=== PATIENT | female | born 1965 | race Caucasian/White ===

== ENCOUNTER 2023-07-28 10:53 | Outpatient (OUT) | payer MEDICARE, SELFPAY ==
--- NOTE | 2023-07-28 10:55 | MM_ITS ---
Patient Name: PAULETTE KIM MR#: [id number] : 1965 Exam Date: 07/28/2023 Ordering Doctor: Patricia Schultz RADIOLOGY REPORT PROCEDURE: MM TOMOSYNTHESIS SCREENING BI COMPARISON: MG MAMM SCREEN JOON W CAD, 01/25/2019. MG MAMM SCREEN JOON W CAD, 03/22/2020. INDICATIONS: screening Calculator Name NCI Breast Cancer Risk Assessment Tool 5 Year Breast Cancer Risk 2.70% Lifetime Breast Cancer Risk 13.60% Personal Breast Cancer No Personal Ovarian Cancer No Treatments Excision. Family Cancers Sister with breast cancer at age 57; Cousin-maternal with breast cancer at age 60. LOCATION: [facility] BREAST COMPOSITION: Heterogeneously dense,which may obscure small masses. FINDINGS: DIAGNOSTIC CATEGORY 1--NEGATIVE. NO CHANGE FROM COMPARISON ASSESSMENT. Scattered benign-appearing calcifications are present. Scattered benign-appearing lymph nodes are present. RIGHT BREAST: No significant suspicious finding. LEFT BREAST: No significant suspicious finding. RECOMMENDATIONS: ROUTINE MAMMOGRAM AND CLINICAL EVALUATION IN 12 MONTHS. PLEASE NOTE: A NORMAL MAMMOGRAM DOES NOT EXCLUDE THE POSSIBILITY OF BREAST CANCER. A CLINICALLY SUSPICIOUS PALPABLE LUMP SHOULD BE BIOPSIED. Dictated by: Austin Arce MD on 07/28/2023 at 11:42 Approved by: Austin Arce MD on 07/28/2023 at 11:43
== END 2023-07-28 10:54 | disposition home or self-care (01) ==
LOC: MAMMO 10:53
DX: Z12.31 Encounter for screening mammogram for malignant neoplasm of breast (principal); Z80.3 Family history of malignant neoplasm of breast
CPT/HCPCS: 77063; 77067

== ENCOUNTER 2024-08-02 16:57 | Outpatient (OUT) | payer MEDICARE, SELFPAY ==
--- NOTE | 2024-08-02 17:00 | MM_ITS ---
Patient Name: PAULETTE KIM MR#: [id number] : 1965 Exam Date: 08/02/2024 Ordering Doctor: Non-Staff Physician RADIOLOGY REPORT PROCEDURE: MM TOMOSYNTHESIS SCREENING BI COMPARISON: MM TOMOSYNTHESIS SCREENING BI, 07/28/2023. MG MAMM SCREEN JOON W CAD, 03/22/2020. MG MAMM SCREEN JOON W CAD, 01/25/2019. MG MAMM RT UNI W CAD DIG, 12/30/2012. INDICATIONS: SCREENING MAMMOGRAM Calculator Name NCI Breast Cancer Risk Assessment Tool 5 Year Breast Cancer Risk 2.80% Lifetime Breast Cancer Risk 13.20% Personal Breast Cancer No Personal Ovarian Cancer No Treatments Excision. Family Cancers Sister with breast cancer at age 57; Cousin-maternal with breast cancer at age 60. LOCATION: [facility] BREAST COMPOSITION: The breasts are heterogeneously dense,which may obscure small masses. FINDINGS: DIAGNOSTIC CATEGORY 1--NEGATIVE. LEFT BREAST: No significant suspicious finding. RIGHT BREAST: No significant suspicious finding. RECOMMENDATIONS: ROUTINE MAMMOGRAM AND CLINICAL EVALUATION IN 12 MONTHS. PLEASE NOTE: A NORMAL MAMMOGRAM DOES NOT EXCLUDE THE POSSIBILITY OF BREAST CANCER. A CLINICALLY SUSPICIOUS PALPABLE LUMP SHOULD BE BIOPSIED. Dictated by: Star Patel DO on 08/04/2024 at 15:28 Approved by: Star Patel DO on 08/04/2024 at 15:31
--- OUTSIDE RECORDS SUMMARY | 2024-08-02 17:09 | XMS_ITS | CCD ---
Author Organization [facility] Care Team Providers Care Director Outcomes Name Role Phone Patricia Schultz Primary Care Provider MISC, DR JOHNSON Admitting Unavailable MISC, DR JOHNSON Attending Unavailable [facility] Primary Care Unavailable BALDWYN, DR FANNIE Villalobos Consulting Unavailable MISC, DR JOHNSON Consulting Unavailable Unavailable Primary Care Provider UnavailHERACLIO Dennison Attending Unavailable NIKHIL, CARLYLE Referring Unavailable NIKHIL, CARLYLE Attending Unavailable SCHULTZPATRICIA Referring Unavailable NIKHIL, CARLYLE Attending Unavailable NIKHIL, CARLYLE Attending Unavailable PATRICIA SCHULTZ Referring Unavailable Sofya GIL - Ana GONZALEZ Primary Care Provider Aidan Vasquez Attending Marty Lockwood MD, Patricia Primary Care Unavailable Aidan Vasquez Attending Unavailab Fabián SHAH, Patricia Primary Care Unavailable Aidan Vasquez Attending Unavailab Fabián SHAH, Patricia Primary Care Unavailable Antoine SHAH, Patricia Primary Care Unavailable Aidan Vasquez Attending Unavailab Fabián SHAH, Patricia Primary Care Unavailable [place] [employer] Attending Unavailsean Schultz MD, Patricia Primary Care Unavailable Rosales Barillas DO Attending Unavailable Rosales Barillas DO Attending Unavailable Antoine SHAH, Patricia Primary Care Unavailable Natan MAHONEY, Elida Cr Attending Unavail able Antoine SHAH, Patricia Primary Care Unavailable Emmanuel Garcia MD Attending Unavailable Antoine SHAH, Patricia Primary Care Unavailable Antoine SHAH, Patricia Referring Unavailable AIDAN BAXTER Referring Unavailable ANTOINE, PATRICIA Primary Care Unavailable ANA DAWSON Referring Unavailable ANA DAWSON Primary Care Unavailable ANA DAWSON Primary Care Unavailable XENIA OCONNOR Attending Unavailable PATRICIA SCHULTZ Primary Care Unavailable SOFYA, ANA M Referring Unavailable SOFYA, ANA M Primary Care Unavailable AIDAN BAXTER Referring Unavailable SOFYA, ANA M Primary Care Unavailable DAWSON, ANA M Referring Unavailable DAWSON, ANA M Primary Care Unavailable DAWSON, ANA M Referring Unavailable DAWSON, ANA M Primary Care Unavailable SOFYA, ANA M Referring Unavailable SOFYA, ANA M Primary Care Unavailable Allergies Allergy Classification Reported Allergen(s) Allergy Type Date of Onset Reaction(s) Facility Macrolides (antibiotic) (1 source) Azithromycin Drug Allergy 1 [facility] Penicillins (antibiotic) (1 source) Penicillins Drug Allergy 1 [facility] (14 sources) Azithromycin Drug Allergy 9 [place] (5 sources) Penicillins Propensity to adverse reactions to drug 1 [place] (13 sources) Metformin And Related Propensity to adverse reactions to drug 1 [place] (7 sources) Penicillins Propensity to adverse reactions to drug 1 [facility] Work Phone: (1 source) Azithromycin Drug Allergy [facility] (2 sources) Penicillin; Translations: [penicillin] Drug Allergy [facility] (2 sources) Penicillins Propensity to adverse reactions to drug 7 [facility] (2 sources) Metformin And Related Propensity to adverse reactions to drug 7 [facility] (6 sources) Mold Extract Drug Allergy 4 Hives, Itching [facility] Medications Current Medications Medication Drug Class(es) Dates Sig (Normalized) Sig (Original) cholecalciferol 1.25 mg oral capsule (2 sources) Vitamin D Start: 07-23-2023 take 1 capsule by mouth every week vitamin D3 1.25 MG (30149 UT) capsule Take 1 capsule by mouth once a week. 07/23/2023 Active DULoxetine 20 mg delayed release oral capsule (2 sources) Serotonin and Norepinephrine Reuptake Inhibitor Start: 09-25-2023 take 1 capsule by mouth once daily DULoxetine [address] Particles capsule DR Take 1 capsule by mouth daily. 30 capsule 5 09/25/2023 Active ergocalciferol 1.25 mg oral capsule (6 sources) Provitamin D2 Compound Start: 06-09-2024 take 1 capsule by mouth every week vitamin D (ERGOCALCIFEROL ) 1.25 MG (77702 UT) CAPS capsule Indications: Low vitamin D level Take 1 capsule by mouth once a week 5 capsule 06/09/2024 Active Start: 04-19-2024 End: 05-18-2024 take 1 capsule by mouth every week vitamin D (ERGOCALCIFEROL) 1.25 MG (46969 UT) CAPS capsule Indications: Low vitamin D level Take 1 capsule by mouth once a week for 5 doses 5 capsule 04/19/2024 05/18/2024 Active Start: 08-06-2023 take 1 capsule by mo uth every week vitamin D (ERGOCALCIFEROL) 1.25 MG (21197 UT) CAPS capsule Take 1 capsule by mouth once a week 08/06/2023 Active nitrofurantoin, macrocrystals 25 mg / nitrofurantoin, monohydrate 75 mg oral capsule (1 source) Nitrofuran Antibacterial Start: 05-09-2024 End: 05-19-2024 take 1 capsule by mouth twice daily nitrofurantoin, macrocrystal-monohydrate, (MACROBID) 100 MG capsule Indications: Urinary tract infection with hematuria, site unspecified Take 1 capsule by mouth 2 times daily for 10 days 20 capsule 05/09/2024 05/19/2024 Active propranolol hydrochloride 20 mg oral tablet (2 sources) beta-Adrenergic [place] Start: 09-25-2023 take 1 tablet by mouth twice daily Propranolol 20 MG tablet Take 1 tablet by mouth 2 times daily. 60 tablet 5 09/25/2023 Active traMADol hydrochloride 50 mg oral tablet (1 source) Opioid Agonist Start: 07-13-2024 End: 07-16-2024 take 1 tablet by mouth every six hours as needed for pain traMADol (ULTRAM) 50 MG tablet Indications: Contusion of right hip, initial encounter Take 1 tablet by mouth every 6 hours as needed for Pain for up to 3 days. Intended supply: 3 days. Take lowest dose possible to manage pain Max Daily Amount: 200 mg 10 tablet 07/13/2024 07/16/2024 Active Problems Active Problems Problem Classification Problem Date Documented Da te Episodic/Chronic Anxiety disorders (10 sources) Anxiety disorder; Translations: [Anxiety disorder, unspecified] Onset: 10-15-2016 09-25-2023 Chronic Diabetes mellitus without complication (6 sources) Diabetes mellitus; Translations: [Type 2 diabetes mellitus without complications] Onset: 10-15-2016 04-19-2024 Chronic E Codes: Fall (2 sources) Fall; Translations: [Unspecified fall, initial encounter] Onset: 07-13-2024 07-13-2024 Episodic Genitourinary symptoms and ill-defined conditions (1 source) Hematuria, unspecified; Translations: [Hematuria, unspecified] Onset: 05-09-2024 Episodic Headache; including migraine (3 sources) Migraine; Translations: [Migraine without aura, not intractable, without status migrainosus] Onset: 09-25-2023 09-25-2023 Chronic Headache; including migraine (3 sources) Cervicogenic headache; Translations: [Headache, cervicogenic] Onset: 09-25-2023 09-25-2023 Episodic Mood disorders (4 sources) Depressive disorder; Translations: [Depression] Onset: 10-15-2016 04-19-2024 Chronic Nutritional deficiencies (4 sources) Vitamin D deficiency; Translations: [Vitamin D deficiency, unspecified] Onset: 04-19-2024 04-19-2024 Chronic Other hematologic conditions (1 source) Red blood cell count raised; Translations: [Other abnormality of red blood cells] 04-06-2024 Episodic Other injuries and conditions due to external causes (1 source) Closed injury of head; Translations: [Unspecified injury of head, initial encounter] 07-13-2024 Episodic Other injuries and conditions due to external causes (1 source) Unspecified injury of head, initial encounter; Translations: [Unspecified injury of head, initial encounter] Onset: 07-13-2024 Episodic Other nervous system disorders (2 sources) Paresthesia; Translations: [Paresthesia of skin] 09-25-2023 Episodic Other nervous system disorders (2 sources) Paresthesia of skin; Translations: [Paresthesia of skin] Onset: 10-15-2023 Episodic Other screening for suspected conditions (not mental disorders or infectious disease) (8 sources) Encounter for screening mammogram for malignant neoplasm of breast; Translations: [Decreased vitamin D] Onset: 03-22-2020 Episodic Other skin disorders (1 source) Generalized hyperhidrosis; Translations: [Generalized hyperhidrosis] Onset: 05-11-2024 Episodic Spondylosis; intervertebral disc disorders; other back problems (4 sources) Neck pain; Translations: [Cervicalgia] Onset: 10-15-2023 09-25-2023 Episodic Superficial injury; contusion (2 sources) Contusion of hip; Translations: [Contusion of right hip, initial encounter] Onset: 07-13-2024 07-13-2024 Episodic Urinary tract infections (2 sources) Urinary tract infectious disease; Translations: [Urinary tract infection, site not specified] Onset: 05-09-2024 05-09-2024 Episodic Past or Other Problems Problem Classification Problem Date Documented Date Episodic/Chronic Disorders of teeth and jaw (4 sources) Bilateral temporomandibular joint pain; Translations: [Arthralgia of bilateral temporomandibular joint] Onset: 06-24-2017 04-19-2024 Episodic Immunizations and screening for infectious disease (4 sources) Viral screening status; Translations: [Encounter for screening for other viral diseases] Onset: 04-05-2024 04-05-2024 Episodic Other hematologic conditions (1 source) Other abnormality of red blood cells; Translations: [Other abnormality of red blood cells] Onset: 04-06-2024 Episodic Residual codes; unclassified (1 source) Family history of malignant neoplasm of breast; Translations: [FAMILY HX MALIG NEOPLASM OF BREAST] Onset: 03-28-2020 Episodic Residual codes; unclassified (3 sources) Family history of breast cancer; Translations: [Family history of malignant neoplasm of breast] Onset: 03-28-2020 Resolved: 05-09-2024 05-09-2024 Episodic Viral infection (2 sources) Other specified viral infection; Translations: [Zoster without complications] Onset: 03-26-2024 Episodic Results Test Name Value Interpretation Reference Range Facility Basic Metabolic Panelon 07-02 Anion gap [Moles/Vol] 12 mmol/L 9 - 16 mmol/L [facility] Calcium [Mass/Vol] 9.5 mg/dL 8.6 - 10. 4 mg/dL [facility] Chloride [Moles/Vol] 102 mmol/L 98 - 10 7 mmol/L [facility] CO2 [Moles/Vol] 24 mmol/L 20 - 31 mmol/L [facility] Creatinine [Mass/Vol] 0.7 mg/dL 0.50 - 0.90 mg/dL [facility] Piper Meyer Rate - PINF [facility] Comment on above: These results are not intended for use in patients <18 years of age. eGFR results are calculated without a race factor using the 2020 CKD-EPI equation. Careful clinical correlation is recommended, particularly when comparing to results calculated using previous equations. The CKD-EPI equation is less accurate in patients with extremes of muscle mass, extra-renal metabolism of creatine, excessive creatine ingestion, or following therapy that affects renal tubular secretion. Glucose [Mass/Vol] 113 mg/dL High 74 - 99 mg/dL [facility] Interpretation and review of laboratory results Abnormal [facility] Potassium [Moles/Vol] 4.1 mmol/L 3.7 - 5.3 mmol/L [facility] Sodium [Moles/Vol] 138 mmol/L 136 - 145 mmol/L [facility] Urea nitrogen [Mass/Vol] 16 mg/dL 8 - 23 mg/dL [facility] Urea nitrogen/Creatinine [Mass ratio] 23 mg/mg High 9 - 20 [facility] Basic Metabolic Profon 07-13 Anion gap [Moles/Vol] 12 mmol/L Normal 9-16 [facility] Comment on above: Performed By: #### B SELMA MASON TROPI ####[facility] [address] [place] [address] [facility] Director: Fannie Garcia MD BUN/CRE Ratio 23 High 9-20 [facility] Comment on above: Performed By: #### B SELMA MASON TROPI ####[facility] [address] [place] [address] lab Director: Fannie Garcia MD Calcium [Mass/Vol] 9.5 mg/dL Normal 8.6-10.4 [facility] Comment on above: Performed By: #### B SELMA MASON TROPI ####[facility] [place] , [place] [address] Lab Director: Fannie Garcia MD Chloride [Moles/Vol] 102 mmol/L Normal 98-107 [facility] Comment on above: Performed By: #### B MARLON CDP, TROPI ####[facility] [place] , [place] [id number] Lab Director: Fannie Garcia MD CO2 [Moles/Vol] 24 mmol/L Normal 20-[address] [facility] Comment on above: Performed By: #### B SELMA MASON, TROPI ####[address] , [place] [id number] Lab Director: Fannie Garcia MD Creatinine [Mass/Vol] 0.7 mg/dL Normal 0.50-0.90 [facility] Comment on above: Performed By: #### B SELMA MASON, TROPI ####[address] , [place] [id number] Lab Director: Fannie Garcia MD GFR/1.73 sq M.predicted among non-blacks MDRD (S/P/Bld) [Vol rate/Area] mL/min/{1.73_m2} Normal >60 [facility] Comment on above: Result Comment: These results are not intended for use in patients <18 years of age. eGFR results are calculated without a race factor using the 2020 CKD-EPI equation. Careful clinical correlation is recommended, particularly when comparing to results calculated using previous equations. The CKD-EPI equation is less accurate in patients with extremes of muscle mass, extra-renal metabolism of creatine, excessive creatine ingestion, or following therapy that affects renal tubular secretion. Performed By: #### B SELMA MASON, TROPI ####[address] [place] [address] Lab Director: Fannie Garcia MD Glucose [Mass/Vol] 113 mg/dL High 74-99 [facility] Comment on above: Performed By: #### B MARLON CDP, TROPI ####[address] , [place] [id number] Lab Director: Fannie Garcia MD Potassium [Moles/Vol] 4.1 mmol/L Normal 3.7-5.3 [facility] Comment on above: Performed By: #### B SELMA MASON, TROPI ####[address] , [place] [id number] Lab Director: Fannie Garcia MD Sodium [Moles/Vol] 138 mmol/L Normal 136-145 [facility] Comment on above: Performed By: #### B SELMA MASON, TROPI ####[address] , [place] [id number] lab Director: Fannie Garcia MD Urea nitrogen [Mass/Vol] 16 mg/dL Normal 8-23 [facility] Comment on above: Performed By: #### B SELMA MASON, TROPI ####[address] , [facility]83 Lab Director: Fannie Garcia MD CBC with Auto Differentialon 07-13-2024 Basophils (Bld) [#/Vol] 0.04 10*3/uL [facility] Basophils/100 WBC (Bld) 1 % 0 - 2 % [facility] Eosinophils (Bld) [#/Vol] 0.10 10*3/uL [facility] Eosinophils/100 WBC (Bld) 1 % 1 - 4 % [facility] Erythrocyte distribution width (RBC) [Ratio] 13.2 % 11.8 - 14.4 % [facility] Hematocrit (Bld) [Volume fraction] 44.1 % 36.3 - 47.1 % [facility] Hemoglobin (Bld) [Mass/Vol] 15.2 g/dL High 11.9 - 15.1 g/dL [facility] Immature granulocytes (Bld) [#/Vol] [facility] Immature granulocytes/100 WBC (Bld) 0 % 0 [facility] Interpretation and review of laboratory results Abnormal [facility] Lymphocytes/100 WBC (Bld) 28 % 24 - 43 % [facility] Lymphocytes/100 WBC (Bld) 2.31 % [facility] MCH (RBC) [Entitic mass] 29.1 pg 25.2 - 33.5 pg [facility] MCHC (RBC) [Mass/Vol] 34.5 g/dL 28.4 - 34.8 g/dL [facility] MCV (RBC) [Entitic vol] 84.5 fL 82.6 - 102.9 fL [facility] Monocytes/100 WBC (Bld) 7 % 3 - 12 % [facility] Monocytes/100 WBC (Bld) 0.61 % [facility] Neutrophils/100 WBC (Bld) 63 % 36 - 65 % [facility] Nucleated RBC/100 WBC (Bld) [Ratio] 0.0 % 0.0 per 100 WBC [facility] Platelet mean volume (Bld) [Entitic vol] 10.8 fL 8.1 - 13.5 fL [facility] Platelets (Bld) [#/Vol] 300 10*3/uL [facility] RBC (Bld) [#/Vol] 5.22 10*6/uL High 3.95 - 5.1 1 m/uL [facility] Segmented neutrophils/100 WBC (Bld) 5.13 % [facility] WBC other (Bld) [#/Vol] 8.2 [facility] CBC with Diffon 07-13-2024 Abs. Basophil 0.04 k/uL Normal 0.00-0.20 [facility] Comment on above: Performed By: #### B SELMA MASON, TROPI ####[facility] [address] [place] [address] lab Director: Fannie Garcia MD Abs.Imm.Granulocyte <0.03 Normal 0.00-0.30 [facility] Comment on above: Performed By: #### B SELMA MASON, TROPI ####[facility] [address] [place] [address]([facility])[phone] Director: Fannie Garcia MD Abs.Neutrophil (Seg) 5.13 k/uL Normal 1.50-8.10 [facility] Comment on above: Performed By: #### B MP, CDP, TROPI ####[address] [place] [address] Lab Director: Fannie Garcia MD Basophils/100 WBC (Bld) 1 % Normal 0-2 [facility] Comment on above: Performed By: #### B MARLON, CDP, TROPI ####[address] , [facility]83[facility])[phone] Director: Fannie Garcia MD Eosinophils (Bld) [#/Vol] 0.10 10*3/uL Normal 0.00-0.44 [facility] Comment on above: Performed By: #### B MARLON, CDP, TROPI ####[address] , [facility]83[facility])[phone] Director: Fannie Garcia MD Eosinophils/100 WBC (Bld) 1 % Normal 1-4 [facility] Comment on above: Performed By: #### B SELMA MASON, TROPI ####[address] , [facility]83[facility])[phone] Director: Fannie Garcia MD Erythrocyte distribution width (RBC) [Ratio] 13.2 % Normal 11.8-14.4 [facility] Comment on above: Performed By: #### B MP, CDP, TROPI ####[address] [place] [address] Lab Director: Fannie Garcia MD Hematocrit (Bld) [Volume fraction] 44.1 % Normal 36.3-47.1 [facility] Comment on above: Performed By: #### B MARLON, CDP, TROPI ####[address] , [facility]83[facility])[phone] Director: Fannie Garcia MD Hemoglobin (Bld) [Mass/Vol] 15.2 g/dL High 11.9-15.1 [facility] Comment on above: Performed By: #### B SELMA MASON, TROPI ####[address] [place] [address] Lab Director: Fannie Garcia MD Immature granulocytes/100 WBC (Bld) 0 % Normal 0 [facility] Comment on above: Performed By: #### B MARLON CDP, TROPI ####[address] , [place] [phone] Director: Fannie Garcia MD Lymphocytes (Bld) [#/Vol] 2.31 10*3/uL Normal 1.10-3.70 [facility] Comment on above: Performed By: #### B SELMA MASON, TROPI ####[address] , [place] [phone] Director: Fannie Garcia MD Lymphocytes/100 WBC (Bld) 28 % Normal 24-43 [facility] Comment on above: Performed By: #### B SELMA MASON, TROPI ####[address] , [place] [phone] Director: Fannie Garcia MD MCH (RBC) [Entitic mass] 29.1 pg Normal 25.2-33.5 [facility] Comment on above: Performed By: #### B SELMA MASON, TROPI ####[address] , [place] [phone] Director: Fannie Garcia MD MCHC (RBC) [Mass/Vol] 34.5 g/dL Normal 28.4-34.8 [facility] Comment on above: Performed By: #### B SELMA MASON, TROPI ####[address] , [place] [phone] Director: Fannie Garcia MD MCV (RBC) [Entitic vol] 84.5 fL Normal 82.6-102.9 [facility] Comment on above: Performed By: #### B SELMA MASON, TROPI ####[address] , [place] [phone] Director: Fannie Garcia MD Monocytes (Bld) [#/Vol] 0.61 10*3/uL Normal 0.10-1.20 [facility] Comment on above: Performed By: #### B MP, CDP, TROPI ####[address] , [place] [phone] Director: Fannie Garcia MD Monocytes/100 WBC (Bld) 7 % Normal 3-12 [facility] Comment on above: Performed By: #### B SELMA MASON, TROPI ####[address] , [place] [address])[phone] Director: Fannie Garcia MD Neutrophil (Seg) 63 % Normal 36-65 [facility] Comment on above: Performed By: #### B SELMA MASON, TROPI ####[address] , [place] [phone] Director: Fannie Garcia MD NRBC Automated 0.0 per 100 WBC Normal 0.0 [facility] Comment on above: Performed By: #### B SELMA MASON, TROPI ####[address] , [place] [address])[phone] Director: Fannie Garcia MD Platelet mean volume (Bld) [Entitic vol] 10.8 fL Normal 8.1-13.5 [facility] Comment on above: Performed By: #### B MARLON CDP, TROPI ####[address] , [place] [phone] Director: Fannie Garcia MD Platelets (Bld) [#/Vol] 300 10*3/uL Normal 138-453 [facility] Comment on above: Performed By: #### B SELMA MASON, TROPI ####[facility] [place] , [place] [phone] Lab Director: Fannie Garcia MD RBC (Bld) [#/Vol] 5.22 10*6/uL High 3.95-5.11 [facility] Comment on above: Performed By: #### B SELMA MASON, TROPI ####[address] , [place] 288[address] lab Director: Fannie Garcia MD WBC (Bld) [#/Vol] 8.2 10*3/uL Normal 3.5-11.3 [facility] Comment on above: Performed By: #### B SELMA MASON, TROPI ####[address] [place] [address] lab Director: Fannie Garcia MD CT CERVICAL SPINE WO CONTRAS Ton 07-13-2024 CT CERVICAL SPINE WO CONTRAST EXAMINATION: CT OF THE HEAD WITHOUT CONTRAST; CT OF THE CERVICAL SPINE WITHOUT CONTRAST 07/13/2024 7:25 pm TECHNIQUE: CT of the head was performed without the administration of intravenous contrast. Automated exposure control, iterative reconstruction, and/or weight based adjustment of the mA/kV was utilized to reduce the radiation dose to as low as reasonably achievable.; CT of the cervical spine was performed without the administration of intravenous contrast. Multiplanar reformatted images are provided for review. Automated exposure control, iterative reconstruction, and/or weight based adjustment of the mA/kV was utilized to reduce the radiation dose to as low as reasonably achievable. COMPARISON: None. HISTORY: ORDERING SYSTEM PROVIDED HISTORY: fall TECHNOLOGIST PROVIDED HISTORY: fall Decision Support Exception - unselect if not a suspected or confirmed emergency medical condition->Emergency Medical Condition (MA) CT BRAIN BRAIN/VENTRICLES: There is no acute intracranial hemorrhage, mass effect or midline shift. No abnormal extra-axial fluid collection. The jon-white differentiation is maintained without evidence of an acute infarct. There is no evidence of hydrocephalus. Ventricles are normal ORBITS: The visualized portion of the orbits demonstrate no acute abnormality. SINUSES: The visualized paranasal sinuses and mastoid air cells demonstrate no acute abnormality. SOFT TISSUES/SKULL: No acute abnormality of the visualized skull or soft tissues. CT CERVICAL SPINE loss of the cervical lordosis. No fracture or subluxation. Facets are normally aligned. Odontoid is intact. Spinous processes are intact. No prevertebral soft tissue swelling. Lung apices are clear. Skull base is intact Craniocervical junction is intact. C1-2 is unremarkable C 2-3 unremarkable C3-4 facet arthropathy C4-5 facet arthropathy more prominent on the left. C5-6 Anterior and posterior spurring. Loss of disc space height. Facet arthropathy. C6-7 Anterior and posterior spurring. Loss of disc space height. Facet arthropathy. C7-T1 unremarkable IMPRESSION: CT BRAIN no acute intracranial abnormality. CT CERVICAL SPINE No acute fracture. Interpreted by: Alexandra Antoine MD Signed by: Alexandra Antoine MD 07/13/24 Final result Normal [facility] CT Cervical spine WO contras ton 07-13-2024 Radiology Study observation (narrative) [facility] CT HEAD WO CONTRASTon 2024 CT HEAD WO CONTRAST EXAMINATION: CT OF THE HEAD WITHOUT CONTRAST; CT OF THE CERVICAL SPINE WITHOUT CONTRAST 07/13/2024 7:25 pm TECHNIQUE: CT of the head was performed without the administration of intravenous contrast. Automated exposure control, iterative reconstruction, and/or weight based adjustment of the mA/kV was utilized to reduce the radiation dose to as low as reasonably achievable.; CT of the cervical spine was performed without the administration of intravenous contrast. Multiplanar reformatted images are provided for review. Automated exposure control, iterative reconstruction, and/or weight based adjustment of the mA/kV was utilized to reduce the radiation dose to as low as reasonably achievable. COMPARISON: None. HISTORY: ORDERING SYSTEM PROVIDED HISTORY: fall TECHNOLOGIST PROVIDED HISTORY: fall Decision Support Exception - unselect if not a suspected or confirmed emergency medical condition->Emergency Medical Condition (MA) CT BRAIN BRAIN/VENTRICLES: There is no acute intracranial hemorrhage, mass effect or midline shift. No abnormal extra-axial fluid collection. The jon-white differentiation is maintained without evidence of an acute infarct. There is no evidence of hydrocephalus. Ventricles are normal ORBITS: The visualized portion of the orbits demonstrate no acute abnormality. SINUSES: The visualized paranasal sinuses and mastoid air cells demonstrate no acute abnormality. SOFT TISSUES/SKULL: No acute abnormality of the visualized skull or soft tissues. CT CERVICAL SPINE loss of the cervical lordosis. No fracture or subluxation. Facets are normally aligned. Odontoid is intact. Spinous processes are intact. No prevertebral soft tissue swelling. Lung apices are clear. Skull base is intact Craniocervical junction is intact. C1-2 is unremarkable C 2-3 unremarkable C3-4 facet arthropathy C4-5 facet arthropathy more prominent on the left. C5-6 Anterior and posterior spurring. Loss of disc space height. Facet arthropathy. C6-7 Anterior and posterior spurring. Loss of disc space height. Facet arthropathy. C7-T1 unremarkable IMPRESSION: CT BRAIN no acute intracranial abnormality. CT CERVICAL SPINE No acute fracture. Interpreted by: Alexandra Antoine MD Signed by: Alexandra Antoine MD 07/13/24 Final result Normal [facility] CT Head WO contraston 2024 Radiology Study observation (narrative) [facility] No Panel Informationon 07-13 No acute abnormality of the chest or left femur. [facility] EXAMINATION: ONE XRAY VIEW OF THE CHEST; 2 XRAY VIEWS OF THE LEFT FEMUR 07/13/2024 7:42 pm COMPARISON: 06/08/2020 HISTORY: ORDERING SYSTEM PROVIDED HISTORY: fall TECHNOLOGIST PROVIDED HISTORY: fall FINDINGS: Chest: The lungs are clear. Normal cardiomediastinal silhouette. No pleural effusion or pneumothorax. No acute osseous abnormality. Left femur: No acute fracture. Normal alignment. Preserved joint spaces. Normal soft tissues. [facility] Rashad Soliz DO - 07/13/2024 EXAMINATION: ONE XRAY VIEW OF THE CHEST; 2 XRAY VIEWS OF THE LEFT FEMUR 07/13/2024 7:42 pm COMPARISON: 06/08/2020 HISTORY: ORDERING SYSTEM PROVIDED HISTORY: fall TECHNOLOGIST PROVIDED HISTORY: fall FINDINGS: Chest: The lungs are clear. Normal cardiomediastinal silhouette. No pleural effusion or pneumothorax. No acute osseous abnormality. Left femur: No acute fracture. Normal alignment. Preserved joint spaces. Normal soft tissues. IMPRESSION: No acute abnormality of the chest or left femur. [facility] CT BRAIN no acute intracranial abnormality. CT CERVICAL SPINE No acute fracture. [facility] EXAMINATION: CT OF THE HEAD WITHOUT CONTRAST; CT OF THE CERVICAL SPINE WITHOUT CONTRAST 07/13/2024 7:25 pm TECHNIQUE: CT of the head was performed without the administration of intravenous contrast. Automated exposure control, iterative reconstruction, and/or weight based adjustment of the mA/kV was utilized to reduce the radiation dose to as low as reasonably achievable.; CT of the cervical spine was performed without the administration of intravenous contrast. Multiplanar reformatted images are provided for review. Automated exposure control, iterative reconstruction, and/or weight based adjustment of the mA/kV was utilized to reduce the radiation dose to as low as reasonably achievable. COMPARISON: None. HISTORY: ORDERING SYSTEM PROVIDED HISTORY: fall TECHNOLOGIST PROVIDED HISTORY: fall Decision Support Exception - unselect if not a suspected or confirmed emergency medical condition->Emergency Medical Condition (MA) CT BRAIN BRAIN/VENTRICLES: There is no acute intracranial hemorrhage, mass effect or midline shift. No abnormal extra-axial fluid collection. The jon-white differentiation is maintained without evidence of an acute infarct. There is no evidence of hydrocephalus. Ventricles are normal ORBITS: The visualized portion of the orbits demonstrate no acute abnormality. SINUSES: The visualized paranasal sinuses and mastoid air cells demonstrate no acute abnormality. SOFT TISSUES/SKULL: No acute abnormality of the visualized skull or soft tissues. CT CERVICAL SPINE loss of the cervical lordosis. No fracture or subluxation. Facets are normally aligned. Odontoid is intact. Spinous processes are intact. No prevertebral soft tissue swelling. Lung apices are clear. Skull base is intact Craniocervical junction is intact. C1-2 is unremarkable C 2-3 unremarkable C3-4 facet arthropathy C4-5 facet arthropathy more prominent on the left. C5-6 Anterior and posterior spurring. Loss of disc space height. Facet arthropathy. C6-7 Anterior and posterior spurring. Loss of disc space height. Facet arthropathy. C7-T1 unremarkable [facility] Alexandra Antoine MD - 07/13/2024 EXAMINATION: CT OF THE HEAD WITHOUT CONTRAST; CT OF THE CERVICAL SPINE WITHOUT CONTRAST 07/13/2024 7:25 pm TECHNIQUE: CT of the head was performed without the administration of intravenous contrast. Automated exposure control, iterative reconstruction, and/or weight based adjustment of the mA/kV was utilized to reduce the radiation dose to as low as reasonably achievable.; CT of the cervical spine was performed without the administration of intravenous contrast. Multiplanar reformatted images are provided for review. Automated exposure control, iterative reconstruction, and/or weight based adjustment of the mA/kV was utilized to reduce the radiation dose to as low as reasonably achievable. COMPARISON: None. HISTORY: ORDERING SYSTEM PROVIDED HISTORY: fall TECHNOLOGIST PROVIDED HISTORY: fall Decision Support Exception - unselect if not a suspected or confirmed emergency medical condition->Emergency Medical Condition (MA) CT BRAIN BRAIN/VENTRICLES: There is no acute intracranial hemorrhage, mass effect or midline shift. No abnormal extra-axial fluid collection. The jon-white differentiation is maintained without evidence of an acute infarct. There is no evidence of hydrocephalus. Ventricles are normal ORBITS: The visualized portion of the orbits demonstrate no acute abnormality. SINUSES: The visualized paranasal sinuses and mastoid air cells demonstrate no acute abnormality. SOFT TISSUES/SKULL: No acute abnormality of the visualized skull or soft tissues. CT CERVICAL SPINE loss of the cervical lordosis. No fracture or subluxation. Facets are normally aligned. Odontoid is intact. Spinous processes are intact. No prevertebral soft tissue swelling. Lung apices are clear. Skull base is intact Craniocervical junction is intact. C1-2 is unremarkable C 2-3 unremarkable C3-4 facet arthropathy C4-5 facet arthropathy more prominent on the left. C5-6 Anterior and posterior spurring. Loss of disc space height. Facet arthropathy. C6-7 Anterior and posterior spurring. Loss of disc space height. Facet arthropathy. C7-T1 unremarkable IMPRESSION: CT BRAIN no acute intracranial abnormality. CT CERVICAL SPINE No acute fracture. [facility] [employer] [facility] [employer] No Panel InformationOrdered By: Rashad Soliz on 07-13-2024 [facility] [employer] Work Phone: No Panel InformationOrdered By: Alexandra Antoine on 07-13-2024 [facility] [employer] Work Phone: Portable XR Chest AP single viewon 07-13-2024 Radiology Study observation (narrative) [facility] [employer] Troponinon 07-13-2024 Troponin I.cardiac High sensitivity method [Mass/Vol] 7 ng/L 0 - 14 ng/L [facility] Comment on above: High Sensitivity Tro ponin values cannot be compared with other Troponin methodologies. Troponin, High Sens 7 ng/L Normal 0-14 [facility] Comment on above: Result Comment: High Sensitivity Troponin values cannot be compared with other Troponin methodologies. Performed By: #### B MP, CDP, TROPI ####[facility] [address] [place] [address] lab Director: Fannie Garcia MD XR CHEST PORTABLEon 07-13-19 XR CHEST PORTABLE EXAMINATION: ONE XRAY VIEW OF THE CHEST; 2 XRAY VIEWS OF THE LEFT FEMUR 07/13/2024 7:42 pm COMPARISON: 06/08/2020 HISTORY: ORDERING SYSTEM PROVIDED HISTORY: fall TECHNOLOGIST PROVIDED HISTORY: fall FINDINGS: Chest: The lungs are clear. Normal cardiomediastinal silhouette. No pleural effusion or pneumothorax. No acute osseous abnormality. Left femur: No acute fracture. Normal alignment. Preserved joint spaces. Normal soft tissues. IMPRESSION: No acute abnormality of the chest or left femur. Interpreted by: Rashad Soliz DO Signed by: Rashad Soliz DO 07/13/24 Final result Normal [facility] XR FEMUR LEFT (MIN 2 VIEWS)o n 07-13-2024 XR FEMUR LEFT (MIN 2 VIEWS) EXAMINATION: ONE XRAY VIEW OF THE CHEST; 2 XRAY VIEWS OF THE LEFT FEMUR 07/13/2024 7:42 pm COMPARISON: 06/08/2020 HISTORY: ORDERING SYSTEM PROVIDED HISTORY: fall TECHNOLOGIST PROVIDED HISTORY: fall FINDINGS: Chest: The lungs are clear. Normal cardiomediastinal silhouette. No pleural effusion or pneumothorax. No acute osseous abnormality. Left femur: No acute fracture. Normal alignment. Preserved joint spaces. Normal soft tissues. IMPRESSION: No acute abnormality of the chest or left femur. Interpreted by: Rashad Soliz DO Signed by: Rashad Soliz DO 07/13/24 Final result Normal [facility] XR Femur - left 2 Viewson Radiology Study observation (narrative) [facility] LORRI Screen w/reflexon 2023 LORRI Screen Negative Normal NEG [facility] Comment on above: Performed By: #### C RP, SED ####[address] [place] [address] Lab Director: Fannie Garcia MD#### ANAX ####[address] [place], [place] [id number] Lab Director: Francisco Soares MD Anti-dsDNA 0.9 IU/mL Normal <10.0 [facility] Comment on above: Result Comment: Reference Range: <10.0 Negative 10.0-15.0 Equivocal >15.0 Positive Performed By: #### C RP, SED ####[address] [place], [place] [id number] Lab Director: Fannie Garcia MD#### ANAX ####[address] [place], [place] [address] Lab Director: Francisco Soares MD FINESSE Screen 0.4 U/mL Normal <0.7 [facility] Comment on above: Result Comment: Reference Range: <0.7 Negative 0.7-1.0 Equivocal >1.0 Positive FINESSE Screen includes U1RNP,RNP70,Sm,Ro(SS-A),La(SS-B),CENP,Scl-70,Liane-1 Performed By: #### C RP, SED ####[address] [place], [place] [address] Lab Director: Fannie Garcia MD#### ANAX ####[address] [place] [address] Lab Director: Francisco Soares MD C-Reactive Proteinon 024 CRP [Mass/Vol] 12.4 mg/L High 0.0-5.0 [facility] Comment on above: Performed By: #### C RP, SED ####[address] [place], [place] [id number] Lab Director: Fannie Garcia MD#### ANAX ####[address] [place] [address] Lab Director: Francisco Soares MD Cult,Urineon 05-11-2024 Cult,Urine Specimen Description .VOIDED URINE Special Requests Site: Urine Culture ESCHERICHIA COLI >100,000 CFU/ML Report Status FINAL 05/11/2024 SUSCEPTIBILITY Organism ESCHERICHIA COLI Method ABBI Ampicillin 8 SUSCEPTIBLE Cefazolin <=4 SUSCEPTIBLE Cefazolin sensitivity results can be used to predict the effectiveness of oral cephalosporins (eg. Cephalexin) in uncomplicated Urinary Tract Infections due to E. coli, K. pneumoniae, and P. mirabilis Ceftriaxone <=0.25 SUSCEPTIBLE ESBL NEGATIVE Gentamicin <=1 SUSCEPTIBLE Levofloxacin <=0.12 SUSCEPTIBLE Nitrofurantoin <=16 SUSCEPTIBLE Piperacillin/Tazobac montenegro <=4 SUSCEPTIBLE Tobramycin <=1 SUSCEPTIBLE Trimethoprim/Sulfa <=20 SUSCEPTIBLE Susceptible [facility] Comment on above: Performed By: #### U RC ####[address] [address] lab Director: Francisco Soares [address] [place] [id number] lab Director: Fannie Garcia MD Sedimentation Rateon 024 Sedimentation Rate 3 mm/Hr Normal 0-30 [facility] Comment on above: Performed By: #### C RP, SED ####[address] [place], [place] [address] lab Director: Fannie Garcia MD#### ANAX ####[address] [address] lab Director: Francisco Soares MD Hemoglobin A1Con 04-27-2024 Average glucose Estimated from glycated hemoglobin (Bld) [Mass/Vol] 157 mg/dL [facility] Comment on above: The ADA and AACC rec ommend providing the estimated average glucose result to permit better patient understanding of their HBA1c result. HbA1c (Bld) [Mass fraction] 7.1 % High 4.0 - 6.0 % [facility] Interpretation and review of laboratory results Abnormal [facility] Glucose [Mass/Vol] 157 mg/dL Normal [facility] Comment on above: Result Comment: The ADA and AACC recommend providing the estimated average glucose result to permit better patient understanding of their HBA1c result. Performed By: #### G LYHGB ####[facility] [address] [place] [address] Lab Director: Francisco Soares MD HbA1c (Bld) [Mass fraction] 7.1 % High 4.0-6.0 [facility] Comment on above: Performed By: #### G LYHGB ####[facility] [address] [place] [address] lab Director: Francisco Soares MD Smear to Pathologiston 04-07 Smear to Pathologist SEE REPORT Normal [facility] Comment on above: Result Comment: REVIEWING PATHOLOGIST: ELECTRONICALLY SIGNED. ART GIMENEZ M.D. Performed By: #### P ATH ####[address] [address] lab Director: Francisco Soares MD#### RETCT, CDP ####[facility] [address] [place] [address] lab Director: Fannie Garcia MD CBC with Auto Differentialon 04-06-2024 Basophils (Bld) [#/Vol] 0.04 10*3/uL [facility] Basophils/100 WBC (Bld) 1 % 0 - 2 % [facility] Eosinophils (Bld) [#/Vol] 0.09 10*3/uL [facility] Eosinophils/100 WBC (Bld) 1 % 1 - 4 % [facility] Erythrocyte distribution width (RBC) [Ratio] 13.2 % 11.8 - 14.4 % [facility] Hematocrit (Bld) [Volume fraction] 44.3 % 36.3 - 47.1 % [facility] Hemoglobin (Bld) [Mass/Vol] 14.8 g/dL 11.9 - 15.1 g/dL [facility] Immature granulocytes (Bld) [#/Vol] [facility] Immature granulocytes/100 WBC (Bld) 0 % 0 [facility] Lymphocytes/100 WBC (Bld) 35 % 24 - 43 % [facility] Lymphocytes/100 WBC (Bld) 2.25 % [facility] MCH (RBC) [Entitic mass] 29.1 pg 25.2 - 33.5 pg [facility] MCHC (RBC) [Mass/Vol] 33.4 g/dL 28.4 - 34.8 g/dL [facility] MCV (RBC) [Entitic vol] 87.2 fL 82.6 - 102.9 fL [facility] Monocytes/100 WBC (Bld) 6 % 3 - 12 % [facility] Monocytes/100 WBC (Bld) 0.41 % [facility] Neutrophils/100 WBC (Bld) 57 % 36 - 65 % [facility] Nucleated RBC/100 WBC (Bld) [Ratio] 0.0 % 0.0 per 100 WBC [facility] Platelet mean volume (Bld) [Entitic vol] 10.9 fL 8.1 - 13.5 fL [facility] Platelets (Bld) [#/Vol] 269 10*3/uL [facility] RBC (Bld) [#/Vol] 5.08 10*6/uL 3.95 - 5.1 1 m/uL [facility] Segmented neutrophils/100 WBC (Bld) 3.63 % [facility] WBC other (Bld) [#/Vol] 6.4 [facility] CBC with Diffon 04-06-2024 Abs. Basophil 0.04 k/uL Normal 0.00-0.20 [facility] Comment on above: Performed By: #### P ATH ####[facility] [address] [place] [address] Lab Director: Francisco Soares MD#### RETCT, CDP ####[facility] [address] [place] [address] Lab Director: Fannie Garcia MD Abs.Imm.Granulocyte <0.03 Normal 0.00-0.30 [facility] Comment on above: Performed By: #### P ATH ####[address] [place], [place] [address])[phone] Director: Francisco Soares MD#### RETCT, CDP ####[address] [place] [address] Lab Director: Fannie Garcia MD Abs.Neutrophil (Seg) 3.63 k/uL Normal 1.50-8.10 [facility] Comment on above: Performed By: #### P ATH ####[place], [place] [address])[phone] Director: Francisco Soares MD#### RETCT, CDP ####[address] [place], [place] [address])[phone] Director: Fannie Garcia MD Basophils/100 WBC (Bld) 1 % Normal 0-2 [facility] Comment on above: Performed By: #### P ATH ####[address] [address])[phone] Director: Francisco Soares MD#### RETCT, CDP ####[address] [place], [place] [address])[phone] Director: Fannie Garcia MD Eosinophils (Bld) [#/Vol] 0.09 10*3/uL Normal 0.00-0.44 [facility] Comment on above: Performed By: #### P ATH ####[address] [address])[phone] Director: Francisco Soares MD#### RETCT, CDP ####[address] [place], [place] [address])[phone] Director: Fannie Garcia MD Eosinophils/100 WBC (Bld) 1 % Normal 1-4 [facility] Comment on above: Performed By: #### P ATH ####[address] [place] [address] Lab Director: Francisco Soares MD#### RETCT, CDP ####[address] [place], [place] [address] Lab Director: Fannie Garcia MD Erythrocyte distribution width (RBC) [Ratio] 13.2 % Normal 11.8-14.4 [facility] Comment on above: Performed By: #### P ATH ####[address] [id number])[phone] Director: Francisco Soares MD#### TOSHA, CDP ####[address] [place], [place] [address] Lab Director: Fannie Garcia MD Hematocrit (Bld) [Volume fraction] 44.3 % Normal 36.3-47.1 [facility] Comment on above: Performed By: #### P ATH ####[address] [place] [address] Lab Director: Francisco Soares MD#### TOSHA, CDP ####[address] , [place] [address] Lab Director: Fannie Garcia MD Hemoglobin (Bld) [Mass/Vol] 14.8 g/dL Normal 11.9-15.1 [facility] Comment on above: Performed By: #### P ATH ####[address] [place], [place] [id number])[phone] Director: Francisco Soares MD#### RETCT, CDP ####[address] [place], [place] [address] Lab Director: Fannie Garcia MD Immature granulocytes/100 WBC (Bld) 0 % Normal 0 [facility] Comment on above: Performed By: #### P ATH ####[address] [address] Lab Director: Francisco Soares MD#### RETCT, CDP ####[address] [place], [place] [address] Lab Director: Fannie Garcia MD Lymphocytes (Bld) [#/Vol] 2.25 10*3/uL Normal 1.10-3.70 [facility] Comment on above: Performed By: #### P ATH ####[address] [address] Lab Director: Francisco Soares MD#### RETCT, CDP ####[address] [place] [address] Lab Director: Fannie Garcia MD Lymphocytes/100 WBC (Bld) 35 % Normal 24-43 [facility] Comment on above: Performed By: #### P ATH ####[address] [id number])[phone] Director: Francisco Soares MD#### TOSHA, CDP ####[address] [place] [address] Lab Director: Fannie Garcia MD MCH (RBC) [Entitic mass] 29.1 pg Normal 25.2-33.5 [facility] Comment on above: Performed By: #### P ATH ####[address] [id number])[phone] Director: Francisco Soares MD#### RETCT, CDP ####[address] [place] [address] Lab Director: Fannie Garcia MD MCHC (RBC) [Mass/Vol] 33.4 g/dL Normal 28.4-34.8 [facility] Comment on above: Performed By: #### P ATH ####[address] [address])[phone] Director: Francisco Soares MD#### RETCT, CDP ####[address] [place] [address] Lab Director: Fannie Garcia MD MCV (RBC) [Entitic vol] 87.2 fL Normal 82.6-102.9 [facility] Comment on above: Performed By: #### P ATH ####[address] [id number])[phone] Director: Francisco Soares MD#### RETCT, CDP ####[address] [place], [place] [address])[phone] Director: Fannie Garcia MD Monocytes (Bld) [#/Vol] 0.41 10*3/uL Normal 0.10-1.20 [facility] Comment on above: Performed By: #### P ATH ####[address] [address])[phone] Director: Francisco Soares MD#### RETCT, CDP ####[address] [place] [address] Lab Director: Fannie Garcia MD Monocytes/100 WBC (Bld) 6 % Normal 3-12 [facility] Comment on above: Performed By: #### P ATH ####[address] [id number])[phone] Director: Francisco Soares MD#### RETCT, CDP ####[address] [place], [place] [address])[phone] Director: Fannie Garcia MD Neutrophil (Seg) 57 % Normal 36-65 [facility] Comment on above: Performed By: #### P ATH ####[address] [address])[phone] Director: Francisco Soares MD#### RETCT, CDP ####[address] , [place] [address] Lab Director: Fannie Garcia MD NRBC Automated 0.0 per 100 WBC Normal 0.0 [facility] Comment on above: Performed By: #### P ATH ####[address] [address] Lab Director: Francisco Soares MD#### RETCT, CDP ####[address] , [place] [address] Lab Director: Fannie Garcia MD Platelet mean volume (Bld) [Entitic vol] 10.9 fL Normal 8.1-13.5 [facility] Comment on above: Performed By: #### P ATH ####[address] [id number])[phone] Director: Francisco Soares MD#### RETCT, CDP ####[address] , [facility]83 Lab Director: Fannie Garcia MD Platelets (Bld) [#/Vol] 269 10*3/uL Normal 138-453 [facility] Comment on above: Performed By: #### P ATH ####[address] [address] Lab Director: Francisco Soares MD#### RETCT, CDP ####[address] , [place] [id number])[phone] Director: Fannie Garcia MD RBC (Bld) [#/Vol] 5.08 10*6/uL Normal 3.95-5.11 [facility] Comment on above: Performed By: #### P ATH ####[address] [id number])[phone] Director: Francisco Soares MD#### RETCT, CDP ####[address] , [place] [address] Lab Director: Fannie Garcia MD WBC (Bld) [#/Vol] 6.4 10*3/uL Normal 3.5-11.3 [facility] Comment on above: Performed By: #### P ATH ####[address] [id number])[phone] Director: Francisco Soares MD#### RETCT, CDP ####[address] [place], [place] [address] Lab Director: Fannie Garcia MD No Panel Informationon 04-06 [facility] Retic Counton 04-06-2024 Absolute Retic 0.079 M/uL Normal 0.030-0.[address] [facility] Comment on above: Performed By: #### P ATH ####[address] [phone])[phone] Director: Francisco Soares MD#### RETCT, CDP ####[address] , [place] [id number])[phone] Director: Fannie Garcia MD IRF 6.9 % Normal 2.7-18.3 [facility] Comment on above: Performed By: #### P ATH ####[address] [id number])[phone] Director: Francisco Soares MD#### RETCT, CDP ####[address] , [place] [address] Lab Director: Fannie Garcia MD Retic Count 1.6 % Normal 0.5-1.9 [facility] Comment on above: Performed By: #### P ATH ####[address] [id number])[phone] Director: Francisco Soares MD#### RETCT, CDP ####[address] [place] [address] lab Director: Fannie Garcia MD Retic Hemoglobin 33.2 pg Normal 28.2-35.7 [facility] Comment on above: Performed By: #### P ATH ####[place] [id number] [place], [place] [id number] lab Director: Francisco Soares MD#### RETCT, CDP ####[facility] [address] [place], [place] [id number] lab Director: Fannie Garcia MD Reticulocyteson 04-06-2024 Immature reticulocytes/Total reticulocytes (Bld) 6.9 % 2.7 - 18.3 % [facility] Retic Hemoglobin 33.2 pg 28.2 - 35.7 pg [facility] Reticulocytes (Bld) [#/Vol] 0.079 10*3/uL [facility] Reticulocytes/100 RBC (Bld) 1.6 % 0.5 - 1.9 % [facility] Surgical Pathology Reporton 04-06-2024 Surgical Pathology Report (NOTE) [id number] [facility] ANATOMIC PATHOLOGY [address] [place] [id number] SURGICAL PATHOLOGY CONSULTATION Patient Name: CHEY HENDERSON MR#: [id number] Specimen #[id number] Procedures/Addenda PERIPHERAL BLOOD REPORT Date Ordered: 04/07/2024 Status: Signed Out Date Complete: 04/07/2024 By: Art Gimenez M.D. Date Reported: 04/07/2024 INTERPRETATION Peripheral blood: -Within normal parameters, no morphologic abnormality. RESULTS-COMMENTS PERIPHERAL BLOOD STUDY CBC: Please see the electronic health record for CBC parameters ([id number], 04/16/24, 15:09). PLATELETS: Platelets show normal morphology. LEUKOCYTES: White blood cells show normal morphology. ERYTHROCYTES: Red blood cells show normal morphology. The absolute reticulocyte count is not increased. Back B2 Art Gimenez M.D. Source: A: Peripheral Blood Normal [facility] CBC with Auto Differentialon 04-05-2024 Basophils (Bld) [#/Vol] 0.06 10*3/uL [facility] Basophils/100 WBC (Bld) 1 % 0 - 2 % [facility] Eosinophils (Bld) [#/Vol] 0.08 10*3/uL [facility] Eosinophils/100 WBC (Bld) 1 % 1 - 4 % [facility] Erythrocyte distribution width (RBC) [Ratio] 13.3 % 11.8 - 14.4 % [facility] Hematocrit (Bld) [Volume fraction] 45.9 % 36.3 - 47.1 % [facility] Hemoglobin (Bld) [Mass/Vol] 15.4 g/dL High 11.9 - 15.1 g/dL [facility] Immature granulocytes (Bld) [#/Vol] 0.03 10*3/uL [facility] Immature granulocytes/100 WBC (Bld) 0 % 0 [facility] and review of laboratory results Abnormal [facility] Lymphocytes/100 WBC (Bld) 32 % 24 - 43 % [facility] Lymphocytes/100 WBC (Bld) 2.21 % [facility] MCH (RBC) [Entitic mass] 29.1 pg 25.2 - 33.5 pg [facility] MCHC (RBC) [Mass/Vol] 33.6 g/dL 28.4 - 34.8 g/dL [facility] MCV (RBC) [Entitic vol] 86.6 fL 82.6 - 102.9 fL [facility] Monocytes/100 WBC (Bld) 7 % 3 - 12 % [facility] Monocytes/100 WBC (Bld) 0.47 % [facility] Neutrophils/100 WBC (Bld) 59 % 36 - 65 % [facility] Nucleated RBC/100 WBC (Bld) [Ratio] 0.0 % 0.0 per 100 WBC [facility] Platelet mean volume (Bld) [Entitic vol] 10.6 fL 8.1 - 13.5 fL [facility] Platelets (Bld) [#/Vol] 278 10*3/uL [facility] RBC (Bld) [#/Vol] 5.30 10*6/uL High 3.95 - 5.1 1 m/uL [facility] Segmented neutrophils/100 WBC (Bld) 4.09 % [facility] WBC other (Bld) [#/Vol] 6.9 [facility] CBC with Diffon 04-05-2024 Abs. Basophil 0.06 k/uL Normal 0.00-0.20 [facility] Comment on above: Performed By: #### C DP, CP #### [facility] [address] [place], [place] [id number] Investigator Fraud: Fannie Garcia MD #### PARAM GARCIA, HIVCMB #### [address] [id number] Investigator Fraud: Francisco Soares MD Abs.Imm.Granulocyte 0.03 k/uL Normal 0.00-0.30 [facility] Comment on above: Performed By: #### C KAREN, CP #### [facility] [address] [place] [address] [place], [place] [id number] Investigator Fraud: Fannie Garcia MD #### PARAM GARCIA, HIVCMB #### [address] [id number] Investigator Fraud: Francisco Soares MD Abs.Neutrophil (Seg) 4.09 k/uL Normal 1.50-8.10 [facility] Comment on above: Performed By: #### C KAREN, CP #### [facility] [address] [place] [address] Investigator Fraud: Fannie Garcia MD #### PARAM GARCIA, HIVCMB #### [address] [id number] Investigator Fraud: Francisco Soares MD Basophils/100 WBC (Bld) 1 % Normal 0-2 [facility] Comment on above: Performed By: #### C DP, CP #### [facility] [address] [place] [address] Investigator Fraud: Fannie Garcia MD #### AHBRANDEE, VD25, HIVCMB #### [address] [phone] Investigator Fraud: Francisco Soares MD Eosinophils (Bld) [#/Vol] 0.08 10*3/uL Normal 0.00-0.44 [facility] Comment on above: Performed By: #### C DP, CP #### [facility] [address] [place] [address] Investigator Fraud: Fannie Garcia MD #### RADHA, VD25, HIVCMB #### [address] [phone] Investigator Fraud: Francisco Soares MD Eosinophils/100 WBC (Bld) 1 % Normal 1-4 [facility] Comment on above: Performed By: #### C DP, CP #### [facility] [address] [place] [address] Investigator Fraud: Fannie Garcia MD #### RADHA, VD25, HIVCMB #### [address] [id number] Investigator Fraud: Francisco Soares MD Erythrocyte distribution width (RBC) [Ratio] 13.3 % Normal 11.8-14.4 [facility] Comment on above: Performed By: #### C DP, CP #### [facility] [address] [place] [address] Investigator Fraud: Fannie Garcia MD #### AHBRANDEE, VD25, HIVCMB #### [address] [phone] Investigator Fraud: Francisco Soares MD Hematocrit (Bld) [Volume fraction] 45.9 % Normal 36.3-47.1 [facility] Comment on above: Performed By: #### C DP, CP #### [facility] [address] [place] [address] Dr. [place] [phone] Investigator Fraud: Fannie Garcia MD #### AHCV, VD25, HIVCMB #### [address] [phone] Investigator Fraud: Francisco Soares MD Hemoglobin (Bld) [Mass/Vol] 15.4 g/dL High 11.9-15.1 [facility] Comment on above: Performed By: #### C DP, CP #### [address] [place] [phone] Investigator Fraud: Fannie Garcia MD #### AHCV, VD25, HIVCMB #### [place] [address] Investigator Fraud: Francisco Soares MD Immature granulocytes/100 WBC (Bld) 0 % Normal 0 [facility] Comment on above: Performed By: #### C DP, CP #### [address] [place] [phone] Investigator Fraud: Fannie Garcia MD #### AHBRANDEE, VD25, HIVCMB #### [place] [address] [phone] Investigator Fraud: Francisco Soares MD Lymphocytes (Bld) [#/Vol] 2.21 10*3/uL Normal 1.10-3.70 [facility] Comment on above: Performed By: #### C DP, CP #### [address] [place] [place] [address] Investigator Fraud: Fannie Garcia MD #### AHCV, VD25, HIVCMB #### [address] [phone] Investigator Fraud: Francisco Soares MD Lymphocytes/100 WBC (Bld) 32 % Normal 24-43 [facility] Comment on above: Performed By: #### C DP, CP #### [address] [place] [phone] Investigator Fraud: Fannie Garcia MD #### AHBRANDEE, VD25, HIVCMB #### [address] [phone] Investigator Fraud: Francisco Soares MD MCH (RBC) [Entitic mass] 29.1 pg Normal 25.2-33.5 [facility] Comment on above: Performed By: #### C DP, CP #### [address] [place] [phone] Investigator Fraud: Fannie Garcia MD #### RADHA, VD25, HIVCMB #### [place] [address] Investigator Fraud: Francisco Soares MD MCHC (RBC) [Mass/Vol] 33.6 g/dL Normal 28.4-34.8 [facility] Comment on above: Performed By: #### C DP, CP #### [address] [place] [phone] Investigator Fraud: Fannie Garcia MD #### RADHA, ZAIRA25, HIVCMB #### [place] [address] Investigator Fraud: Francisco Soares MD MCV (RBC) [Entitic vol] 86.6 fL Normal 82.6-102.9 [facility] Comment on above: Performed By: #### C DP, CP #### [address] [place] [phone] Investigator Fraud: Fannie Garcia MD #### AHCV, VD25, HIVCMB #### [place] [phone] Investigator Fraud: Francisco Soares MD Monocytes (Bld) [#/Vol] 0.47 10*3/uL Normal 0.10-1.20 [facility] Comment on above: Performed By: #### C DP, CP #### [facility] [address] [place], [place] [phone] Investigator Fraud: Fannie Garcia MD #### RADHA, VD25, HIVCMB #### [address] [phone] Investigator Fraud: Francisco Soares MD Monocytes/100 WBC (Bld) 7 % Normal 3-12 [facility] Comment on above: Performed By: #### C DP, CP #### [address] [place] [phone] Investigator Fraud: Fannie Garcia MD #### RADHA, PARAM, HIVCMB #### [address] [phone] Investigator Fraud: Francisco Soares MD Neutrophil (Seg) 59 % Normal 36-65 [facility] Comment on above: Performed By: #### C DP, CP #### [address] [place], [place] 1452583 Investigator Fraud: Fannie Garcia MD #### ABDUL25, HIVCMB #### [address] [address] Investigator Fraud: Francisco Soares MD NRBC Automated 0.0 per 100 WBC Normal 0.0 [facility] Comment on above: Performed By: #### C DP, CP #### [address] [place], [place] [phone] Investigator Fraud: Fannie Garcia MD #### AHBRANDEE, VD25, HIVCMB #### [address] [address] Investigator Fraud: Francisco Soares MD Platelet mean volume (Bld) [Entitic vol] 10.6 fL Normal 8.1-13.5 [facility] Comment on above: Performed By: #### C DP, CP #### [address] [place] [phone] Investigator Fraud: Fannie Garcia MD #### RADHA, ZAIRA25, HIVCMB #### [place] [address] [place], [place] [phone] Investigator Fraud: Francisco Soares MD Platelets (Bld) [#/Vol] 278 10*3/uL Normal 138-453 [facility] Comment on above: Performed By: #### C DP, CP #### [address] [place] [phone] Investigator Fraud: Fannie Garcia MD #### PARAM GARCIA, HIVCMB #### [address] [place] [address] Investigator Fraud: Francisco Soares MD RBC (Bld) [#/Vol] 5.30 10*6/uL High 3.95-5.11 [facility] Comment on above: Performed By: #### C DP, CP #### [address] [place] [phone] Investigator Fraud: Fannie Garcia MD #### RADHA, PARAM, HIVCMB #### [place] [address] [place] [address] Investigator Fraud: Francisco Soares MD WBC (Bld) [#/Vol] 6.9 10*3/uL Normal 3.5-11.3 [facility] Comment on above: Performed By: #### C DP, CP #### [address] [place] [phone] Investigator Fraud: Fannie Garcia MD #### RADHA, PARAM, HIVCMB #### [address] [place] [address] Investigator Fraud: Francisco Soares MD Comp Metabolic Profon 2023 Albumin [Mass/Vol] 4.5 g/dL Normal 3.5-5.2 [facility] Comment on above: Performed By: #### C DP, CP #### [facility] [address] [place], [place] [phone] Investigator Fraud: Fannie Garcia MD #### AHCV, VD25, HIVCMB #### [address] [address] Investigator Fraud: Francisco Soares MD Albumin/Glob Ratio 1.6 Normal 1.0-2.5 [facility] Comment on above: Performed By: #### C DP, CP #### [facility] [address] [place] [address] Dr. [place] [phone] Investigator Fraud: Fannie Garcia MD #### AHCV, VD25, HIVCMB #### [address] [phone] Investigator Fraud: Francisco Soares MD Alkaline Phos 96 U/L Normal 35-104 [facility] Comment on above: Performed By: #### C DP, CP #### [address] [place] [phone] Investigator Fraud: Fannie Garcia MD #### AHCV, VD25, HIVCMB #### [address] [address] Investigator Fraud: Francisco Soares MD ALT [Catalytic activity/Vol] 26 U/L Normal 10-35 [facility] Comment on above: Performed By: #### C DP, CP #### [facility] [address] [place] [address] Dr. [place], [place] [phone] Investigator Fraud: Fannie Garcia MD #### AHCV, VD25, HIVCMB #### [address] [place], [place] [phone] Investigator Fraud: Francisco Soares MD Anion gap [Moles/Vol] 14 mmol/L Normal 9-16 [facility] Comment on above: Performed By: #### C DP, CP #### [facility] [address] [place], [place] 0753183 Investigator Fraud: Fannie Garcia MD #### AHCV, VD25, HIVCMB #### [address] [phone] Investigator Fraud: Francisco Soares MD AST [Catalytic activity/Vol] 19 U/L Normal -35 [facility] Comment on above: Performed By: #### C DP, CP #### [facility] [address] [place], [place] [phone] Investigator Fraud: Fannie Garcia MD #### ABDUL25, HIVCMB #### [address] [phone] Investigator Fraud: Francisco Soares MD Bilirubin [Mass/Vol] 0.3 mg/dL Normal 0.00-1.20 [facility] Comment on above: Performed By: #### C DP, CP #### [address] [place], [place] [phone] Investigator Fraud: Fannie Garcia MD #### RADHA, VD25, HIVCMB #### [address] [place], [place] [phone] Investigator Fraud: Francisco Soares MD BUN/CRE Ratio 18 Normal -20 [facility] Comment on above: Performed By: #### C DP, CP #### [facility] [address] [place], [place] 2583483 Investigator Fraud: Fannie Garcia MD #### AHCV, VD25, HIVCMB #### [address] [place] [place], [place] [phone] Investigator Fraud: Francisco Soares MD Calcium [Mass/Vol] 9.8 mg/dL Normal 8.6-10.4 [facility] Comment on above: Performed By: #### C DP, CP #### [facility] [address] [place], [place] [phone] Investigator Fraud: Fannie Garcia MD #### AHBRANDEE, VD25, HIVCMB #### [address] [place], [place] [phone] Investigator Fraud: Francisco Soares MD Chloride [Moles/Vol] 101 mmol/L Normal 98-107 [facility] Comment on above: Performed By: #### C DP, CP #### [facility] [address] [place] [address] [place] [address] Investigator Fraud: Fannie Garcia MD #### RADHA, ZAIRA25, HIVCMB #### [address] [place], [place] [phone] Investigator Fraud: Francisco Soares MD CO2 [Moles/Vol] 24 mmol/L Normal 20-[address] [facility] Comment on above: Performed By: #### C DP, CP #### [facility] [address] [place] [address] [place] [address] Investigator Fraud: Fannie Garcia MD #### RADHA, VD25, HIVCMB #### [address] [phone] Investigator Fraud: Francisco Soares MD Creatinine [Mass/Vol] 0.8 mg/dL Normal 0.50-0.90 [facility] Comment on above: Performed By: #### C DP, CP #### [facility] [address] [place] [address] [place], [place] [phone] Investigator Fraud: Fannie Garcia MD #### AHCV, VD25, HIVCMB #### [place] [address] [place], [place] [phone] Investigator Fraud: Francisco Soares MD GFR/1.73 sq M.predicted among non-blacks MDRD (S/P/Bld) [Vol rate/Area] 83 mL/min/{1.73_m2} Normal >60 [facility] Comment on above: Result Comment: These results are not intended for use in patients <18 years of age. eGFR results are calculated without a race factor using the 2020 CKD-EPI equation. Careful clinical correlation is recommended, particularly when comparing to results calculated using previous equations. The CKD-EPI equation is less accurate in patients with extremes of muscle mass, extra-renal metabolism of creatine, excessive creatine ingestion, or following therapy that affects renal tubular secretion. Performed By: #### C KAREN, CP #### [facility] [address] [place] [address] [place] [address] Investigator Fraud: Fannie Garcia MD #### PARAM GARCIA, HIVCMB #### [address] [phone] Investigator Fraud: Francisco Soares MD Glucose [Mass/Vol] 137 mg/dL High 74-99 [facility] Comment on above: Performed By: #### C KAREN, CP #### [facility] [address] [place] [address] [place] [address] Investigator Fraud: Fannie Garcia MD #### PARAM GARCIA, HIVCMB #### [address] [phone] Investigator Fraud: Francisco Soares MD Potassium [Moles/Vol] 4.6 mmol/L Normal 3.7-5.3 [facility] Comment on above: Performed By: #### C KAREN, CP #### [facility] [address] [place] [address] [place] [address] Investigator Fraud: Fannei Gacria MD #### PARAM GARCIA, HIVCMB #### [address] [phone] Investigator Fraud: Francisco Soares MD Protein [Mass/Vol] 7.4 g/dL Normal 6.6-8.7 [facility] Comment on above: Performed By: #### C DP, CP #### [facility] [address] [place] [address] Investigator Fraud: Fannie Garcia MD #### AHCV, VD25, HIVCMB #### [address] [place], [place] [phone] Investigator Fraud: Francisco Soares MD Sodium [Moles/Vol] 139 mmol/L Normal 136-145 [facility] Comment on above: Performed By: #### C DP, CP #### [facility] [address] [place] [address] [place] [address] Investigator Fraud: Fannie Garcia MD #### RADHA, ZAIRA25, HIVCMB #### [place] [address] [address] [place], [place] [phone] Investigator Fraud: Francisco Soares MD Urea nitrogen [Mass/Vol] 14 mg/dL Normal 8-23 [facility] Comment on above: Performed By: #### C DP, CP #### [facility] [address] [place] [address] [place] [address] Investigator Fraud: Fannie Garcia MD #### RADHA, VD25, HIVCMB #### [place] [address] [place], [place] [phone] Investigator Fraud: Francisco Soares MD Comprehensive Metabolic Pane reina 04-05-2024 Albumin [Mass/Vol] 4.5 g/dL 3.5 - 5.2 g/dL [facility] Albumin/Globulin [Mass ratio] 1.6 {ratio} 1.0 - 2.5 [facility] ALP [Catalytic activity/Vol] 96 U/L 35 - 104 U/L [facility] ALT [Catalytic activity/Vol] 26 U/L 10 - 35 U/L [facility] Anion gap [Moles/Vol] 14 mmol/L 9 - 16 mmol/L [facility] AST [Catalytic activity/Vol] 19 U/L 10 - 35 U/L [facility] Bilirubin [Mass/Vol] 0.3 mg/dL 0.00 - 1.20 mg/dL [facility] Calcium [Mass/Vol] 9.8 mg/dL 8.6 - 10. 4 mg/dL [facility] Chloride [Moles/Vol] 101 mmol/L 98 - 10 7 mmol/L [facility] CO2 [Moles/Vol] 24 mmol/L 20 - 31 mmol/L [facility] Creatinine [Mass/Vol] 0.8 mg/dL 0.50 - 0.90 mg/dL [facility] Est, Glom Filt Rate 83 - PINF [facility] Comment on above: These results are not intended for use in patients <18 years of age. eGFR results are calculated without a race factor using the 2020 CKD-EPI equation. Careful clinical correlation is recommended, particularly when comparing to results calculated using previous equations. The CKD-EPI equation is less accurate in patients with extremes of muscle mass, extra-renal metabolism of creatine, excessive creatine ingestion, or following therapy that affects renal tubular secretion. Glucose [Mass/Vol] 137 mg/dL High 74 - 99 mg/dL [facility] Interpretation and review of laboratory results Abnormal [facility] Potassium [Moles/Vol] 4.6 mmol/L 3.7 - 5.3 mmol/L [facility] Protein [Mass/Vol] 7.4 g/dL 6.6 - 8.7 g/dL [facility] Sodium [Moles/Vol] 139 mmol/L 136 - 145 mmol/L [facility] Urea nitrogen [Mass/Vol] 14 mg/dL 8 - 23 mg/dL [facility] Urea nitrogen/Creatinine [Mass ratio] 18 mg/mg 9 - 20 [facility] HIV Ag/Abon 04-05-2024 HIV Ag/Ab Non-Reactive Normal [facility] Comment on above: Result Comment: No l aboratory evidence of HIV infection. If acute HIV infection is suspected, consider testing for HIV-1 RNA. Performed By: #### C DP, CP #### [address] [place] [address] Investigator Fraud: Fannie Garcia MD #### RADHA, VD25, HIVCMB #### [place] [address] [place], [place] [phone] Investigator Fraud: Francisco Soares MD HIV Screenon 04-05-2024 HIV 1+2 Ab+HIV1 p24 Ag IA Ql Non-Reactive NONREACTIVE [facility] Comment on above: No laboratory eviden ce of HIV infection. If acute HIV infection is suspected, consider testing for HIV-1 RNA. Hep C Abon 04-05-2024 Hep C Ab Non-Reactive Normal [facility] Comment on above: Result Comment: The hepatitis C procedure used in our laboratory is a Chemiluminescent test specific for three recombinant HCV antigens. A negative anti-HCV result indicates that the antibodies to hepatitis C virus are not present at this time. Individuals with reactive anti-HCV should be considered infected and infectious until proven otherwise. Confirmation of all equivocal or reactive results is recommended by ordering HCV RNA by PCR. Performed By: #### C DP, CP #### [address] [place] [place] [address] Investigator Fraud: Fannie Garcia MD #### RADHA, ZAIRA25, HIVCMB #### [address] [phone] Investigator Fraud: Francisco Soares MD Hepatitis C Antibodyon 04-05 HCV Ab IA Ql Non-Reactive NONREACTIVE [facility] Comment on above: The hepatitis C procedure used in our laboratory is a Chemiluminescent test specific for three recombinant HCV antigens. A negative anti-HCV result indicates that the antibodies to hepatitis C virus are not present at this time. Individuals with reactive anti-HCV should be considered infected and infectious until proven otherwise. Confirmation of all equivocal or reactive results is recommended by ordering HCV RNA by PCR. No Panel Informationon 04-05 [facility] TSH w/reflex to FT4on 2023 Thyroid Stim. Horm. 1.37 uIU/mL Normal 0.27-4.20 [facility] Comment on above: Performed By: #### T SHX #### [facility] [address] [place] [address] [place] [address] Investigator Fraud: Fannie Garcia MD TSH with Reflexon 04-05-2024 TSH Qn 1.37 m[IU]/L [facility] Vitamin D 25 Hydroxyon 04-05 25-hydroxyvitamin D3 [Mass/Vol] 19.4 ng/mL Low 30.0 - 100.0 ng/mL [facility] Comment on above: Reference Range: Vitamin D status Range Deficiency <20 ng/mL Mild Deficiency 20-30 ng/mL Sufficiency 30-100 ng/mL Toxicity >100 ng/mL Interpretation and review of laboratory results Abnormal [facility] Vitamin D 25 OHon 04-05-2024 Vitamin D 25 OH 19.4 ng/mL Low 30.0-100.[address] [facility] Comment on above: Result Comment: Reference Range: Vitamin D status Range Deficiency <20 ng/mL Mild Deficiency 20-30 ng/mL Sufficiency 30-100 ng/mL Toxicity >100 ng/mL Performed By: #### C DP, CP #### [facility] [address] [place] [address] Dr. [place], [place] [address] Investigator Fraud: Fannie Garcia MD #### AHCV, VD25, HIVCMB #### [address] [address] Investigator Fraud: Francisco Soares MD Sleep Medicine Office/Clinic Noteon 11-12-2023 Sleep Medicine Office/Clinic Note Chief Complaint Routine CPAP follow-up. Complains of dry mouth. History of Present Illness The patient is a 58-year-old female who is seen in follow-up regarding a diagnosis of obstructive sleep apnea being treated with CPAP therapy. She has struggled with CPAP therapy due to her facial interface and complaints of dry mouth. She would like these issues problem solved today. A type III home sleep apnea test, conducted by [facility] [place] [address], June 18, 2021, established a mild degree of OTONIEL; 4% AHI: 9.2, oxygen saturation dee dee: 82%. A clinical polysomnogram, February 17, 2019, at the [facility], demonstrated a reduced sleep efficiency of 55% with a prolonged sleep latency to initial sleep onset relatively normal sleep architecture with 8% N1, 59% N2, 6% N3, 26% REM. There is no's significant sleep disordered breathing; overall AHI: 0.8. Oxygen saturation dee dee: 89%. There were no significant limb movements. [1] She is currently in possession of an auto CPAP unit. [employer] ([employer] [employer]) AirSense 11 AutoSet CPAP AirView Download Data range: 11/12/2022 - 11/11/2023 Compliance Report Usage 11/12/2022 - 11/11/2023 Usage days 57/365 days (16%) >= 4 hours 12 days (3%) < 4 hours 45 days (12%) Usage hours 148 hours 49 minutes Average usage (total days) 24 minutes Average usage (days used) 2 hours 37 minutes Median usage (days used) 2 hours 26 minutes Total used hours (value since last reset - 11/11/2023) 149 hours AirSense 11 AutoSet Serial number [id number] Mode AutoSet Min Pressure 5 cmH2O Max Pressure 10 cmH2O EPR Fulltime EPR level 2 Response Standard Therapy Pressure - cmH2O Median: 6.4 95th percentile: 8.6 Maximum: 9.0 Leaks - L/min Median: 0.1 95th percentile: 1.2 Maximum: 15.7 Events per hour AI: 0.2 HI: 0.2 AHI: 0.4 Apnea Index Central: 0.1 Obstructive: 0.1 Unknown: 0.0 RERA Index 0.1 Lemuel-Dempsey respiration (average duration per night) 0 minutes (0%) Clearly she has the potential of using CPAP adherently and with benefit. Sleep-wake Schedule: She retires at 3 AM, and is up for the day between 11:30 AM and 12 PM. Viper Sleepiness Scale score: 6 Review of Systems Constitutional Symptoms: None Eyes: She uses corrective lenses, without a recent change in visual acuity Ears: Without hearing loss Nose/Sinuses/Throat: Without complaints of vocal hoarseness, or nasal or sinus congestion Cardiovascular: Atypical chest pain, without angina or palpitations Respiratory: Without cough, wheezing, sputum, or dyspnea Gastrointestinal: The patient's appetite is good. Her bowel habits are variable in association with IBS. There are no complaints of GE reflux Genitourinary: Nocturia, without dysuria or hematuria. Postmenopausal Musculoskeletal: Arthralgias and myalgias in association with fibromyalgia Neurologic: Peripheral paresthesias Endocrine: History of symptomatic hypoglycemia Hematologic: Recent diagnosis of secondary polycythemia Immunologic: Without chronic or recurrent infection Dermatologic: Without complaints of rash or skin irritations Psychiatric: Well-adjusted at this stage of life Physical Exam Vitals & Measurements HR: 90 (Peripheral) RR: 18 BP: 135/87 SpO2: 94 HT: 163 cm WT: 64.1 kg WT: 64.1 kg (Dosing) BMI: 24.13 Additional Vitals BP Position/Location: Sitting, Left arm Assessment/Plan 1. OTONIEL (obstructive sleep apnea) Improved on CPAP. The patient has struggled with CPAP due to facial interface issues and dry mouth. These complaints were addressed today with problem solving. The patient is encouraged to continue to use CPAP every night all night as prescribed and also to continue with good health habits including appropriate caloric intake, regular physical exercise, a regular sleep-wake schedule, adequate sleep time (7-9 hours), and good sleep hygiene. Considering her recent diagnosis of secondary polycythemia it is very important that she accomplish adherent use of CPAP therapy. Annual follow-up visit as needed. Time Spent with the Patient I have personally spent 19 minutes on this date, directly related to today's patient visit, including pre and post visit work, for this date of service. Time listed does not include time spent on separately billable services. Problem List/Past Medical History Ongoing Chronic GERD Environmental sleep disorder Fibromyalgia Nocturnal hypoglycemia OTONIEL (obstructive sleep apnea) Tinnitus Type 2 diabetes mellitus Historical Type II diabetes mellitus uncontrolled Procedure/Surgical History Basal cell carcinoma of face section - at term (05/25/1983) section - at term (05/18/1985) section - at term (10/12/1989) section - at term (12/16/1991) Medications DME - Supplies, See Instructions, N/A, True Metrix test strips to use 4x's daily. E11.9 DULoxetine 20 (more content not included)... Normal [facility] MRI SPINE CERVICAL WITHOUT C Osvaldo 10-17-2023 MRI SPINE CERVICAL WITHOUT CONTRAST EXAM: MRI SPINE CERVICAL WITHOUT CONTRAST COMPARISON: No prior cervical spine imaging CLINICAL INDICATIONS: Neck pain shoots up the neck and skull. TECHNIQUE: High resolution multiplanar MR images were obtained through the cervical spine without intravenous contrast Images obtained on 3 T FINDINGS: Vertebral body heights are normal. Intervertebral disc space narrowing at C5-C6 and C6-C7. Degenerative retrolisthesis by 3 mm of C5 on C6. Alignment is otherwise normal. CO images show: C2-C3: Small central protrusion without central or foraminal narrowing. C3-C4: Mild bilateral foraminal narrowing from articular facet degenerative change. C4-C5: Hypertrophic facet arthropathy on the left. Moderate bilateral foraminal narrowing. C5-C6: Broad osteophyte disc complex, larger on the right side. Ventral cord is flattened and T2 hyperintense centrally from edema. No cord atrophy. Severe bilateral foraminal stenosis. C6-C7: Broad osteophyte disc complex, ventral thecal sac is flattened. Moderate bilateral foraminal narrowing. C7-T1: No central or foraminal stenosis. IMPRESSION: 1. Central stenosis at C5-C6 from osteophyte disc complex, T2 hyperintense edema in the cord and severe bilateral foraminal stenosis 2. Bilateral foraminal stenosis at C6-C7 Carmen Valadez M.D. This report has been electronically signed and verified by the Radiologist whose name is printed above. This report contains privileged and confidential information and is intended solely for the use of the individual or entity to which it is addressed. If you are not the intended recipient of this report, you are hereby notified that any copying, distribution, dissemination or action taken in relation to the contents of this report is strictly prohibited and may be unlawful. If you have received this report in error, please notify the sender immediately at [phone] and permanently delete the original report and destroy any copies or printouts. Normal [facility] Diabetic Office/Clinic Noteo n 10-15-2023 Diabetic Office/Clinic Note Chief Complaint DMT2 follow up History of Present Illness 58-year-old female here for follow-up for DM 2. Patient was diagnosed in 2012 with type 2 diabetes. Last visit 04/10/2023 at which time no medication adjustments were made. Since last visit patient reports she continues to test blood glucose levels with finger pokes intermittently for review. Average over the last 30 days 145. A1c remains well-controlled prior to today's visit 6.9%. Patient denies current complaints chest pain, shortness of breath, vision changes, headaches. Tolerating current treatment well with no side effects Diet: Generalized diet, reducing carbohydrates and denies sugared drinks Exercise: stays active Dilated eye exam: March 2023 Retinopathy: None Diabetic kidney disease: No Podiatry visit: No Neuropathy: No Brought glucometer to visit: Yes finger pokes Hypoglycemic episodes: Rare Hyperglycemic episodes: Rare Current treatment: Diet and activity Recent labs: A1c 6.9 (10/01/2023) 6.9 (04/10/2023) 6.6 (06/16/2022) 6.5 (11/08/2021) 6.8 (06/18/2021) 6.5 (03/20/2020) Weight (kg): 63.6 (10/15/2023) 61.9 (04/10/23) 60.9 (06/17/2022) 61.6 (11/08/2021) 64.4 (08/01/2021) BMI: 23.9 (10/15/2023) 23.3 (04/10/2023) 22.9 (06/17/2022) 23.2 (11/08/2021) 24.2 (08/01/2021) 10/01/2023 Creatinine 0.8 GFR >60 Cholesterol 204, HDL 51, LDL 131, triglycerides 109 TSH 2.26 Urine microalbumin/creatin ine ratio <30 Physical Exam Vitals & Measurements T: 36.9 ?C (Temporal Artery) HR: 84 (Peripheral) RR: 20 BP: 142/88 SpO2: 97 HT: 163 cm WT: 63.6 kg WT: 63.6 kg (Dosing) BMI: 23.94 NO PE Additional Vitals BP Position/Location: Sitting, Left arm Assessment/Plan Assessment: DM2: Congratulated patient on continued success with glycemic control. Patient encouraged to continue lifestyle which is contributing to adequate glycemic control. Call blood sugars to the office with frequent elevations or lows. Provided list of area PCPs and encouraged patient to establish. Follow-up in 6 months or sooner as needed Plan: See PI Discussed goals of treatment Accomplishing these goals will decrease risk of new or advancing DM complications to include blindness, kidney failure, heart attack, stroke, and limb amputation Your goals: Fasting and pre-meal blood sugars 80-130 1-2 hour after meal, bedtime and overnight blood sugars <180 Hemoglobin A1c <7% without frequent low blood sugars 5-10% weight loss if BMI >25 Blood pressure <140/90 LDL cholesterol <100 Avoid diabetic complications to eyes, nerves, heart, kidneys, blood vessels and extremities -To lower BS and A1c: Continue diet and activity -Check blood sugars 4 times per day (before breakfast, lunch, dinner, and at bedtime) if possible. If this isn't possible can check blood sugars 2 times per day alternating between breakfast/dinner on one day and before lunch/bedtime the next day. -Check blood sugar if you think you could be severely low <60-70 and treat low blood sugar using rule of 15's. Eat 15 g carbs (3 glucose tabs or 4 ounces of fruit juice or regular soda, or 6-7 hard candies, or 1 tablespoon or sugar). If blood sugar remains <80 after eating 15 g of carbs and waiting 15 minutes may repeat rule of 15's. -Continue to eat 1440-9488 calories per day. Best to consume calories divided into 3 meals per day. Avoid all sugared pop and other sweet drinks. Eat less sweet, white, and fast foods. -Continue to exercise as frequently as possible. Recommend at least 10,000 steps per day. When possible engage in moderate to intense aerobic activity with goals of increasing HR. -Record blood sugar readings and call these to [phone] in 2 weeks for myself to review. Call sooner if you're experiencing frequent blood sugars <60 or >350. -Repeat A1c and appointment with myself in 6 months or sooner if needed Aidan Baxter CNP [facility] [address], [place] [address] Time Spent with the Patient I have personally spent 36 minutes on this date, directly related to today's patient visit, including pre and post visit work, for this date of service. Time listed does not include time spent on separately billable services. Problem List/Past Medical History Ongoing Chronic GERD Environmental sleep disorder Fibromyalgia Nocturnal hypoglycemia OTONIEL (obstructive sleep apnea) Tinnitus Type 2 diabetes mellitus Historical Type II diabetes mellitus uncontrolled Procedure/Surgical History Basal cell carcinoma of face section - at term (05/25/1983) section - at term (05/18/1985) section - at term (10/12/1989) section - at term (12/16/1991) Medications DME - Supplies, See Instructions, N/A DULoxetine 20 mg oral delayed release capsule KRO TRUE METRIX GLUCOSE TEST STRIP, See Instructions propranolol 20 mg oral tablet Vitamin D3 50,000 (more content not included)... Normal [facility] Comp Metab w/Bili Pron 09-30 Albumin [Mass/Vol] 4.4 g/dL Normal 3.5-5.2 [facility] Comment on above: Performed By: #### C PBILC, TSHX #### [facility] [address] [place] [address] [place] [address] Investigator Fraud: Fannie Garcia MD #### URNMAB, LIPR, GLYHGB #### [facility] [address] [place] [address] Investigator Fraud: Francisco Soares MD Albumin/Glob Ratio 1.6 Normal 1.0-2.5 [facility] Comment on above: Performed By: #### C PBILC, TSHX #### [facility] [address] [place] [address] [place] [address] Investigator Fraud: Fannie Garcia MD #### URNMAB, LIPR, GLYHGB #### [facility] [address] [place] [address] Investigator Fraud: Francisco oSares MD Alkaline Phos 96 U/L Normal 35-104 [facility] Comment on above: Performed By: #### C PBILC, TSHX #### [facility] [address] [place] [address] [place] [address] Investigator Fraud: Fannie Garcia MD #### URNMAB, LIPR, GLYHGB #### [facility] [address] [place], [place] [id number] Investigator Fraud: Francisco Soares MD ALT [Catalytic activity/Vol] 23 U/L Normal 5-33 [facility] Comment on above: Performed By: #### C PBILC, TSHX #### [address] [place] [id number] Investigator Fraud: Fannie Garcia MD #### URNMAB, LIPR, GLYHGB #### [place] [address] [place], [place] [id number] Investigator Fraud: Francisco Soares MD Anion gap [Moles/Vol] 11 mmol/L Normal 9-17 [facility] Comment on above: Performed By: #### C PBILC, TSHX #### [address] [place] [id number] Investigator Fraud: Fannie Garcia MD #### URNMAB, LIPR, GLYHGB #### [place] [address] [place] [id number] Investigator Fraud: Francisco Soares MD AST [Catalytic activity/Vol] 17 U/L Normal <32 [facility] Comment on above: Performed By: #### C PBILC, TSHX #### [address] [place] [id number] Investigator Fraud: Fannie Garcia MD #### URNMAB, LIPR, GLYHGB #### [place] [address] [place], [place] [id number] Investigator Fraud: Francisco Soares MD Bilirubin [Mass/Vol] 0.3 mg/dL Normal 0.3-1.2 [facility] Comment on above: Performed By: #### C PBILC, TSHX #### [address] [place] [id number] Investigator Fraud: Fannie Garcia MD #### URNMAB, LIPR, GLYHGB #### [place] [address] [place], [place] [phone] Investigator Fraud: Francisco Saores MD Bilirubin, Indirect Can not be calculated Normal 0.0-1.0 [facility] Comment on above: Performed By: #### C PBILC, TSHX #### [address] [place] [phone] Investigator Fraud: Fannie Garcia MD #### URNMAB, LIPR, GLYHGB #### [address] [id number] Investigator Fraud: Francisco Soares MD Bilirubin.indirect [Mass/Vol] mg/dL Normal <0.3 [facility] Comment on above: Performed By: #### C PBILC, TSHX #### [address] [place] [address] Investigator Fraud: Fannie Garcia MD #### JUAN DAVID, LIPR, GLYHGB #### [address] [phone] Investigator Fraud: Francisco Soares MD Calcium [Mass/Vol] 9.2 mg/dL Normal 8.6-10.4 [facility] Comment on above: Performed By: #### C PBILC, TSHX #### [address] [place] [place] [address] Investigator Fraud: Fannie Garcia MD #### URNMAB, LIPR, GLYHGB #### [address] [id number] Investigator Fraud: Francisco Soares MD Chloride [Moles/Vol] 102 mmol/L Normal 98-107 [facility] Comment on above: Performed By: #### C PBILC, TSHX #### [facility] [address] [place], [place] [phone] Investigator Fraud: Fannie Garcia MD #### URASIA, LIPR, GLYHGB #### [place] [place], [place] [phone] Investigator Fraud: Francisco Soares MD CO2 [Moles/Vol] 28 mmol/L Normal 20-[address] [facility] Comment on above: Performed By: #### C PBILC, TSHX #### [facility] [address] [place], [place] [phone] Investigator Fraud: Fannie Garcia MD #### JUAN DAVID LIPJosy, GLYHGB #### [address] [id number] Investigator Fraud: Francisco Soares MD Creatinine [Mass/Vol] 0.8 mg/dL Normal 0.5-0.9 [facility] Comment on above: Performed By: #### C PBILC, TSHX #### [facility] [address] [place], [place] 1889783 Investigator Fraud: Fannie Garcia MD #### JUAN DAVID, LIPR, GLYHGB #### [place] [address] [place], [place] [phone] Investigator Fraud: Francisco Soares MD GFR/1.73 sq M.predicted among non-blacks MDRD (S/P/Bld) [Vol rate/Area] 84 mL/min/{1.73_m2} Normal >60 [facility] Comment on above: Result Comment: These results are not intended for use in patients <18 years of age. eGFR results are calculated without a race factor using the 2020 CKD-EPI equation. Careful clinical correlation is recommended, particularly when comparing to results calculated using previous equations. The CKD-EPI equation is less accurate in patients with extremes of muscle mass, extra-renal metabolism of creatine, excessive creatine ingestion, or following therapy that affects renal tubular secretion. Performed By: #### C PBILC, TSHX #### [facility] [address] [place], [place] [id number] Investigator Fraud: Fannie Garcia MD #### URNMAB, LIPR, GLYHGB #### [place] [place] [address] Investigator Fraud: Francisco Soares MD Glucose [Mass/Vol] 153 mg/dL High 70-99 [facility] Comment on above: Performed By: #### C PBILC, TSHX #### [facility] [address] [place], [place] [phone] Investigator Fraud: Fannie Garcia MD #### URNMAB, LIPR, GLYHGB #### [address] [phone] Investigator Fraud: Francisco Soares MD Potassium [Moles/Vol] 4.2 mmol/L Normal 3.7-5.3 [facility] Comment on above: Performed By: #### C PBILC, TSHX #### [address] [place], [place] [phone] Investigator Fraud: Fannie Garcia MD #### URNMAB, LIPR, GLYHGB #### [address] [id number] Investigator Fraud: Francisco Soares MD Protein [Mass/Vol] 7.2 g/dL Normal 6.4-8.3 [facility] Comment on above: Performed By: #### C PBILC, TSHX #### [facility] [address] [place] [address] [address]. [place], [place] [phone] Investigator Fraud: Fannie Garcia MD #### URNMAB, LIPR, GLYHGB #### [place] [address] [place], [place] [phone] Investigator Fraud: Francisco Soares MD Sodium [Moles/Vol] 141 mmol/L Normal 135-144 [facility] Comment on above: Performed By: #### C PBILC, TSHX #### [facility] [address] [place], [place] [phone] Investigator Fraud: Fannie Garcia MD #### URNMAB, LIPR, GLYHGB #### [facility] [address] [place], [place] [phone] Investigator Fraud: Francisco Soares MD Urea nitrogen [Mass/Vol] 16 mg/dL Normal 8- [facility] Comment on above: Performed By: #### C PBILC, TSHX #### [facility] [address] [place], [place] [phone] Investigator Fraud: Fannie Garcia MD #### URNMAB, LIPR, GLYHGB #### [facility] [address] [place], [place] [phone] Investigator Fraud: Francisco Soares MD Hemoglobin A1Con 10-01-2023 Glucose [Mass/Vol] 151 mg/dL Normal [facility] Comment on above: Result Comment: The ADA and AACC recommend providing the estimated average glucose result to permit better patient understanding of their HBA1c result. Performed By: #### C PBILC, TSHX ####[facility] , [place] [id number] Lab Director: Fannie Garcia MD#### URALIZEAB, LIPR, GLYHGB ####[facility] [place] [address] Lab Director: Francisco Soares MD HbA1c (Bld) [Mass fraction] 6.9 % High 4.0-6.0 [facility] Comment on above: Performed By: #### C PBILC, TSHX ####[facility] , [place] [id number] Lab Director: Fannie Garcia MD#### URNMAB, LIPR, GLYHGB ####[facility] [place] [address] Lab Director: Francisco Soares MD Lipid Profileon 10-01-2023 Cholesterol [Mass/Vol] 204 mg/dL High 0-199 [facility] Comment on above: Result Comment: Cholesterol Guidelines: <200 Desirable 200-240 Borderline >240 Undesirable Performed By: #### C PBILC, TSHX ####[address] [place], [place] [address]83 Lab Director: Fannie Garcia MD#### URNMAB, LIPR, GLYHGB ####[facility] [address] [place] [address] Lab Director: Francisco Soares MD Cholesterol in HDL [Mass/Vol] 51 mg/dL Normal >40 [facility] Comment on above: Result Comment: HDL Guidelines: <40 Undesirable 40-59 Borderline >59 Desirable Performed By: #### C PBILC, TSHX ####[address] [place], [place] 1150183 Lab Director: Fannie Garcia MD#### URNMAB, LIPR, GLYHGB ####[facility] [address] [place] [address] Lab Director: Francisco Soares MD Cholesterol in LDL [Mass/Vol] 131 mg/dL High 0-100 [facility] Comment on above: Result Comment: LDL Guidelines: <100 Desirable 100-129 Near to/above Desirable 130-159 Borderline >159 Undesirable Direct (measured) LDL and calculated LDL are not interchangeable tests. Performed By: #### C PBILC, TSHX ####[address] [place], [place] [phone] Lab Director: Fannie Garcia MD#### URNMAB, LIPR, GLYHGB ####[facility] [address] [place] [address] Lab Director: Francisco Soares MD Cholesterol in VLDL [Mass/Vol] 22 mg/dL Normal [facility] Comment on above: Performed By: #### C PBILC, TSHX ####[address] [place] [address] Lab Director: Fannie Garcia MD#### URNMAB, LIPR, GLYHGB ####[facility] [address] [place] [address] Lab Director: Francisco Soares MD Cholesterol.total/Cho lesterol in HDL [Mass ratio] 4.0 {ratio} Normal [facility] Comment on above: Performed By: #### C PBILC, TSHX ####[address] [place], [place] 369[address]83 Lab Director: Fannie Garcia MD#### URNMAB, LIPR, GLYHGB ####[facility] [place] [address] Lab Director: Francisco Soares MD Triglyceride [Mass/Vol] 109 mg/dL Normal <150 [facility] Comment on above: Result Comment: Triglyceride Guidelines: <150 Desirable 150-199 Borderline 200-499 High >499 Very high Based on AHA Guidelines for fasting triglyceride, March 2012. Performed By: #### C PBILC, TSHX ####[address] [place] [address] Lab Director: Fannie Garcia MD#### URASIA, LIPR, GLYHGB ####[facility] [address] [place] [address] Lab Director: Francisco Soares MD Microalb.,Random Uron 2023 Creatinine [Mass/Vol] 101.0 mg/dL Normal 28.0-217.0 [facility] Comment on above: Performed By: #### C PBILC, TSHX ####[address] [place], [place] [id number] Lab Director: Fannie Garcia MD#### URNMAB, LIPR, GLYHGB ####[facility] [address] [place], [place] [id number] Lab Director: Francisco Soares MD Microalb/Creat Ratio Can not be calculated Normal 0.0-25.0 [facility] Comment on above: Performed By: #### C PBILC, TSHX ####[address] [place] [id number] Lab Director: Fannie Garcia MD#### URNMAB, LIPR, GLYHGB ####[place] [address] [place], [place] [phone] lab Director: Francisco Soares MD Microalbumin conc. <12 Normal 0-20 [facility] Comment on above: Performed By: #### C PBILC, TSHX ####[address] [place] [id number] Lab Director: Fannie Garcia MD#### URNMAB, LIPR, GLYHGB ####[address] [id number] lab Director: Francisco Soares MD TSH w/reflex to FT4on 2023 Thyroid Stim. Horm. 2.26 uIU/mL Normal 0.30-5.00 [facility] Comment on above: Performed By: #### C PBILC, TSHX ####[address] [place] [id number] lab Director: Fannie Garcia MD#### URNM, LIPR, GLYHGB ####[address] [id number] lab Director: Francisco Soares MD COPPERon 09-25-2023 COPPER, SERUM 114 mcg/dL Normal 77-206 [facility] Comment on above: Result Comment: ADDITIONAL INFORMATION This test was developed and its performance characteristics determined by [facility] in a manner consistent with CLIA requirements. This test has not been cleared or approved by the U.S. Food and Drug Administration. Test Performed by: [facility] [facility] [place] [address] Investigator Fraud: Wily Ascencio M.D. Ph.D.; CLIA# [id number] Performed By: #### Y TRIP #### [facility] (DEFAULT) [address] [place] [id number] METHYLMALONIC ACIDon 024 METHYLMALONIC ACID 0.18 nmol/mL Normal <=0.40 [facility] Comment on above: Result Comment: ADDITIONAL INFORMATION This test was developed and its performance characteristics determined by [facility] in a manner consistent with CLIA requirements. This test has not been cleared or approved by the U.S. Food and Drug Administration. Test Performed by: [facility] [place] [address] Investigator Fraud: Wily Ascencio M.D. Ph.D.; CLIA# [id number] Performed By: #### Y MMA #### [facility] (DEFAULT) [address] [place] [id number] VITAMIN B12on 09-25-2023 Cobalamin (Vitamin B12) [Mass/Vol] 505 pg/mL 211 - 911 pg/mL [facility] Comment on above: Testing of Methylmal onic Acid and Intrinsic Factor Blocking Antibody are recommended if clinical suspicion for pernicious anemia due to B12 deficiency is high for patients with intermediate B12 levels (211 to 400 pg/mL) to rule out spurious heterophile antibodies. Interpretation and review of laboratory results Normal [facility] Cobalamin (Vitamin B12) [Mass/Vol] 505 pg/mL Normal 211-911 [facility] Comment on above: Result Comment: Test ing of Methylmalonic Acid and Intrinsic Factor Blocking Antibody are recommended if clinical suspicion for pernicious anemia due to B12 deficiency is high for patients with intermediate B12 levels (211 to 400 pg/mL) to rule out spurious heterophile antibodies. Performed By: #### B 12B #### [facility] (DEFAULT) [address] [address] VITAMIN B6on 09-25-2023 VITAMIN B6 16 mcg/L Normal 5-50 [facility] Comment on above: Result Comment: ADDITIONAL INFORMATION This test was developed and its performance characteristics determined by [facility] in a manner consistent with CLIA requirements. This test has not been cleared or approved by the U.S. Food and Drug Administration. Test Performed by: [facility] [place] [address] Investigator Fraud: Wily Ascencio M.D. Ph.D.; CLIA# [id number] Performed By: #### Y VITB6 #### [facility] (DEFAULT) [address] [place] [address] ZINC, SERUMon 09-25-2023 ZINC, SERUM 89 mcg/dL Normal 60-106 [facility] Comment on above: Result Comment: ADDITIONAL INFORMATION This test was developed and its performance characteristics determined by [facility] in a manner consistent with CLIA requirements. This test has not been cleared or approved by the U.S. Food and Drug Administration. Test Performed by: [facility] [place] [address] Investigator Fraud: Wily Ascencio M.D. Ph.D.; CLIA# [id number] Performed By: #### Y ZINC #### [facility] (DEFAULT) [address] [place] [id number] Provider Letteron 09-11-2023 Provider Letter [facility] [place] [address] [place], [place] [address] Patricia Schultz MD [facility] [place] [address] Re: Chey Henderson : 1965 Date of Visit: 09/08/2023 Dear Patricia Schultz MD Thank you for your referral, your patient was seen at our office by Dr. Garcia. Attached is Dr. Garcia's office note where you will find his assessment and recommendations. Let me know if you have any questions or concerns. Sincerely, Mary Hill, Host/Hostess Ground Blake Lozano Providers: The following document(s) were included in the letter: September 08, 2023 15:39:50 EDT - (09/08/2023) Rheumatology Office Visit Note Normal [facility] Rheumatology Office/Clinic N oteon 09-08-2023 Rheumatology Office/Clinic Note Chief Complaint New patient, fibromyalgia History of Present Illness Patient is here for evaluation and management of diffuse paresthesias. She had severe social stressors in 2013 when her symptoms developed. She then developed diffuse paresthesias with vibrations. She feels like there is electric current that goes from head to toes. She thinks that her vagus nerve is stuck on. When she is asleep, the humming stops. She does not sleep much due to these symptoms. She would have headaches, with intermittent loss of peripheral vision. Sun exposure can trigger her symptoms. Physical Exam Vitals & Measurements HR: 91 (Peripheral) BP: 131/80 HT: 165 cm WT: 63.7 kg WT: 63.7 kg (Dosing) BMI: 23.4 Additional Vitals BP Position/Location: Sitting, Left arm Physical exam General: Alert and oriented, well nourished, no acute distress. Eye: PERRL, EOMI, normal conjunctiva. HENT: Normocephalic, atraumatic, no conjunctival injection Lungs: Normal respiratory rate, no use of accessory muscles, no audible wheezing Musculoskeletal: no synovitis no significant myofascial tenderness Skin: Skin is warm, dry and pink, no rashes or lesions. Neurologic: Awake, alert, and oriented X3 Psychiatric: Cooperative, appropriate mood and affect. Assessment/Plan 1. Fibromyalgia Unclear etiology of her symptoms as these would be rather atypical for FMS she does have several mild tender points though not severe pain as characteristic of those with FMS I highly recommend seek neurological specialists she is not interested in pharmacotherapy recommend she seek tertiary care neurology eval Medical Decision Making Chronic conditions NOT treated during this visit that affected my overall medical decision making: [] Treatment plans discussed but not opted for at this time: [] Prescribed medication that requires intensive monitoring for toxicity: [] I have reviewed the patient?s medication list for medication interactions/contrai ndications and/or for upcoming procedures: [yes or no] Time Spent with the Patient I have personally spent [] minutes on this date, directly related to today's patient visit, including pre and post visit work, for this date of service. Time listed does not include time spent on separately billable services. Provider Comments f/u Problem List/Past Medical History Ongoing Chronic GERD Environmental sleep disorder Fibromyalgia Nocturnal hypoglycemia OTONIEL (obstructive sleep apnea) Tinnitus Type 2 diabetes mellitus Historical Type II diabetes mellitus uncontrolled Procedure/Surgical History Basal cell carcinoma of face section - at term (05/25/1983) section - at term (05/18/1985) section - at term (10/12/1989) section - at term (12/16/1991) Medications atorvastatin 20 mg oral tablet, 20 mg= 1 tabs, Oral, Daily, 5 refills DME - Supplies, See Instructions, N/A, 11 refills DME - Supplies, See Instructions, N/A HumaLOG 100 units/mL injectable solution, 5 units, Subcutaneous, AC omeprazole 20 mg oral delayed release capsule, 20 mg= 1 caps, Oral, Daily, 2 refills Vitamin D3 50,000 intl units oral capsule Allergies penicillin (Hives) Social History Alcohol Never Employment/School disability Nutrition/Health Caffeine intake amount: dring a half a cup of half and half coffee and one coke a day. Substance Abuse Denies All Tobacco Never (less than 100 in lifetime) Use:. Family History Breast cancer: Sibling. Heart attack: Mother and Father. Health Status Family Member(s) Electronically signed by Emmanuel Land MD 09/08/23 16:[address] [facility] Provider Letteron 07-15-2023 Provider Letter [facility] [place] [address] [place] [address] Patricia Schultz MD [address] [place] [phone] Re: Chey Henderson : 1965 Date of Visit: 09/08/2023 Dear Patricia Schultz MD Thank you for referring your patient, they have been scheduled with Dr. Garcia on September 08, 2023 at 3:20pm. We will send correspondence following this appointment. Let me know if you have any questions or concerns. Sincerely, Mary Hill, Host/Hostess Ground Blake Lozano Providers: Normal [facility] CBC with Auto Differentialon 06-16-2022 Absolute [facility] # 0.09 [facility] Absolute Immature Granulocyte [facility] Absolute Lymph # 2.05 [facility] Absolute [place] # 0.48 [facility] Basophils (Bld) [#/Vol] 0.04 10*3/uL [facility] Basophils/100 WBC (Bld) 1 % 0 - 2 % [facility] Eosinophils/100 WBC (Bld) 1 % 1 - 4 % [facility] Hematocrit (Bld) [Volume fraction] 45.9 % 36.3 - 47.1 % [facility] Hemoglobin (Bld) [Mass/Vol] 15.9 g/dL High 11.9 - 15.1 g/dL [facility] Immature granulocytes/100 WBC (Bld) 0 % 0 [facility] Interpretation and review of laboratory results Abnormal [facility] Lymphocytes/100 WBC (Bld) 30 % 24 - 43 % [facility] MCH (RBC) [Entitic mass] 29.4 pg 25.2 - 33.5 pg [facility] MCHC (RBC) [Mass/Vol] 34.6 g/dL 28.4 - 34.8 g/dL [facility] MCV (RBC) [Entitic vol] 84.8 fL 82.6 - 102.9 fL [facility] Monocytes/100 WBC (Bld) 7 % 3 - 12 % [facility] NRBC Automated 0.0 0.0 per 100 WBC [facility] Platelet distribution width (Bld) [Ratio] 13.4 % 11.8 - 14.4 % [facility] Platelet mean volume (Bld) [Entitic vol] 10.8 fL 8.1 - 13.5 fL [facility] Platelets (Bld) [#/Vol] 253 10*3/uL [facility] RBC (Bld) [#/Vol] 5.41 10*6/uL High 3.95 - 5.1 1 m/uL [facility] Segmented neutrophils/100 WBC (Bld) 61 % 36 - 65 % [facility] Segs Absolute 4.15 [facility] WBC (Bld) [#/Vol] 6.8 10*3/uL [facility] Comprehensive Metabolic Pane reina 06-16-2022 Albumin [Mass/Vol] 4.5 g/dL 3.5 - 5.2 g/dL [facility] Albumin/Globulin [Mass ratio] 1.6 {ratio} 1.0 - 2.5 [facility] ALP (Bld) [Catalytic activity/Vol] 87 U/L 35 - 104 U/L [facility] ALT [Catalytic activity/Vol] 26 U/L 5 - 33 U/L [facility] Anion gap [Moles/Vol] 10 mmol/L 9 - 17 mmol/L [facility] AST [Catalytic activity/Vol] 16 U/L NINF - 32 U/L [facility] Bilirubin [Mass/Vol] 0.3 mg/dL 0.3 - 1 .2 mg/dL [facility] Calcium [Mass/Vol] 9.9 mg/dL 8.6 - 10. 4 mg/dL [facility] Chloride [Moles/Vol] 102 mmol/L 98 - 10 7 mmol/L [facility] CO2 [Moles/Vol] 27 mmol/L 20 - 31 mmol/L [facility] Creatinine [Mass/Vol] 0.7 mg/dL 0.50 - 0.90 mg/dL [facility] [employer] GFR/1.73 sq M.predicted MDRD (S/P/Bld) [Vol rate/Area] - PINF [facility] Comment on above: Effective Mar 03, 2022 These results are not intended for use in patients <18 years of age. eGFR results are calculated without a race factor using the 2020 CKD-EPI equation. Careful clinical correlation is recommended, particularly when comparing to results calculated using previous equations. The CKD-EPI equation is less accurate in patients with extremes of muscle mass, extra-renal metabolism of creatine, excessive creatine ingestion, or following therapy that affects renal tubular secretion. Glucose [Mass/Vol] 122 mg/dL High 70 - 99 mg/dL [facility] Interpretation and review of laboratory results Abnormal [facility] Potassium [Moles/Vol] 4.4 mmol/L 3.7 - 5.3 mmol/L [facility] Protein [Mass/Vol] 7.4 g/dL 6.4 - 8.3 g/dL [facility] Sodium [Moles/Vol] 139 mmol/L 135 - 144 mmol/L [facility] Urea nitrogen (BldV) [Mass/Vol] 21 mg/dL High 6 - 20 mg/dL [facility] Urea nitrogen/Creatinine (Bld) [Mass ratio] 30 High 9 - 20 [facility] No Panel Informationon 06-16 [facility] TSH with Reflexon 06-16-2022 TSH Qn 2.50 m[IU]/L [facility] Lipid Panelon 06-19-2021 Cholesterol [Mass/Vol] 166 mg/dL <200 [facility] [employer] Comment on above: Cholesterol Guidelines: <200 Desirable 200-240 Borderline >240 Undesirable Cholesterol in HDL [Mass/Vol] 46 mg/dL >40 [facility] Comment on above: HDL Guidelines: <40 Undesirable 40-59 Borderline >59 Desirable Cholesterol in LDL [Mass/Vol] 106 mg/dL 0 - 130 mg/dL [facility] Comment on above: LDL Guidelines: <100 Desirable 100-129 Near to/above Desirable 130-159 Borderline >159 Undesirable Direct (measured) LDL and calculated LDL are not interchangeable tests. Cholesterol in VLDL [Mass/Vol] NOT REPORTED 1 - 30 mg/dL [employer] Cholesterol.total/Cho lesterol in HDL [Mass ratio] 3.6 {ratio} <5 [facility] [employer] Triglyceride [Mass/Vol] 71 mg/dL <150 [facility] Comment on above: Triglyceride Guidelines: <150 Desirable 150-199 Borderline 200-499 High >499 Very high Based on AHA Guidelines for fasting triglyceride, March 2012. [facility] CBC Auto Differentialon 06-01 Absolute Eos # 0.11 [facility] th Absolute Immature Granulocyte <0.03 [facility] Absolute Lymph # 2.07 [facility] alth Absolute [place] # 0.64 [facility] lth Basophils (Bld) [#/Vol] 0.05 10*3/uL [facility] Basophils/100 WBC (Bld) 1 % 0 - 2 % [facility] Differential Type NOT REPORTED [facility] Eosinophils/100 WBC (Bld) 1 % 1 - 4 % [facility] Hematocrit (Bld) [Volume fraction] 46.5 % 36.3 - 47.1 % [facility] Hemoglobin.gastrointe stinal spec 1 Ql (Stl) 14.8 g/dL 11.9 - 15.1 g/dL [facility] Immature granulocytes/100 WBC (Bld) 0 % 0 [facility] Interpretation and review of laboratory results Abnormal [facility] [employer] Lymphocytes/100 WBC (Bld) 26 % 24 - 43 % [facility] MCH (RBC) [Entitic mass] 28.2 pg 25.2 - 33.5 pg [facility] [employer] MCHC (RBC) [Mass/Vol] 31.8 g/dL 28.4 - 34.8 g/dL [facility] MCV (RBC) [Entitic vol] 88.6 fL 82.6 - 102.9 fL [facility] Monocytes/100 WBC (Bld) 8 % 3 - 12 % [facility] NRBC Automated 0.0 0.0 per 100 WBC [facility] Platelet distribution width (Bld) [Ratio] 13.1 % 11.8 - 14.4 % [facility] Platelet Estimate NOT REPORTED [facility] [employer] Platelet mean volume (Bld) [Entitic vol] 11.1 fL 8.1 - 13.5 fL [facility] Platelets (Bld) [#/Vol] 239 10*3/uL [facility] RBC (Bld) [#/Vol] 5.25 10*6/uL High 3.95 - 5.1 1 m/uL [facility] RBC (Bld) [#/Vol] NOT REPORTED [facility] Segmented neutrophils/100 WBC (Bld) 64 % 36 - 65 % [facility] [employer] Segs Absolute 4.99 [facility] WBC (Bld) [#/Vol] 7.9 10*3/uL [facility] WBC (Bld) [#/Vol] NOT REPORTED [facility] Comp Metabolic w Bili Profil julito 06-18-2021 Albumin [Mass/Vol] 4.2 g/dL 3.5 - 5.2 g/dL [facility] Albumin/Globulin [Mass ratio] 1.4 {ratio} [facility] ALP (Bld) [Catalytic activity/Vol] 92 U/L 35 - 104 U/L [facility] ALT [Catalytic activity/Vol] 21 U/L 5 - 33 U/L [facility] Anion gap [Moles/Vol] 14 mmol/L 9 - 17 mmol/L [facility] AST [Catalytic activity/Vol] 15 U/L <32 [facility] Bilirubin [Mass/Vol] 0.29 mg/dL Low 0.3 - 1 .2 mg/dL [facility] Bilirubin, Indirect Can not be calculated 0.00 - 1.00 mg/dL [facility] Bilirubin.indirect [Mass/Vol] mg/dL <0.31 mg/dL [facility] Calcium [Mass/Vol] 9.2 mg/dL 8.6 - 10. 4 mg/dL [facility] Chloride [Moles/Vol] 102 mmol/L 98 - 10 7 mmol/L [facility] CO2 [Moles/Vol] 25 mmol/L 20 - 31 mmol/L [facility] Creatinine [Mass/Vol] 0.74 mg/dL 0.50 - 0.90 mg/dL [facility] Free PSA/Total PSA [Mass fraction] 7.1 g/dL 6.4 - 8.3 g/dL [facility] GFR >60 >60 mL/min [facility] GFR Non- >60 >60 mL/min [facility] Glucose [Mass/Vol] 140 mg/dL High 70 - 99 mg/dL [facility] [employer] Interpretation and review of laboratory results Abnormal [facility] Potassium [Moles/Vol] 4.1 mmol/L 3.7 - 5.3 mmol/L [facility] Sodium [Moles/Vol] 141 mmol/L 135 - 144 mmol/L [facility] Urea nitrogen (BldV) [Mass/Vol] 25 mg/dL High 6 - 20 mg/dL [facility] [employer] Laboratory - Chemistry and C hemistry - challengeon 06-18-2021 GFR/1.73 sq M.predicted MDRD (S/P/Bld) [Vol rate/Area] [facility] Comment on above: Average GFR for 50-5 9 years old: 93 mL/min/1.73sq m Chronic Kidney Disease: <60 mL/min/1.73sq m Kidney failure: <15 mL/min/1.73sq m eGFR calculated using average adult body mass. Additional eGFR calculator available at: http://www.[employer]/multiple_crcl_2012.htm Stage 1: Some kidney damage normal GFR Stage 2: Mild kidney damage GFR 60-89 Stage 3: Moderate kidney damage GFR 30-59 Stage 4: Severe kidney damage GFR 15-29 Stage 5: Severe kidney damage GFR <15 ESRD - chronic treatment by dialysis or transplant No Panel Informationon 06-18 [facility] TSH with Reflexon 06-18-2021 TSH Qn 2.63 m[IU]/L [facility] Covid-19, Antibody, TotalOrd ered By: Patricia Schultz on 01-31-2021 Interpretation and review of laboratory results Abnormal [facility] Work Phone: SARS-CoV-2 (COVID-19) RNA TJ+probe Ql (Unsp spec) Positive Abnormal NEGATIVE [facility] Work Phone: Comment on above: A positive result suggests exposure to SARS-CoV-2 (COVID-19) but does not necessarily indicate immunity. Results from antibody testing should not be used as the sole basis to diagnose or exclude SARS-CoV-2 infection or to inform infection status. This test has been authorized by the FDA under an Emergency Use Authorization (EUA) for use by authorized laboratories. Fact sheet for Healthcare Providers: https://www.fda.gov/media/071011/download Fact sheet for Patients: https://www.fda.gov/media/047899/download METHODOLOGY: ECIA Results reported to the appropriate Health Department [facility] [employer] Work Phone: Urinalysis with MicroscopicO rdered By: Patricia Schultz on 09-20-2020 - [facility] Work Phone: Amorphous, UA NOT REPORTED None [facility] Work Phone: Bacteria, UA NOT REPORTED None [facility] Work Phone: Bilirubin Urine Negative NEGATIVE [facility] Work Phone: Casts UA NOT REPORTED /LPF [facility] [employer] Work Phone: Color, UA YELLOW YELLOW [facility] [employer] Work Phone: Crystals, UA NOT REPORTED None /HPF [facility] Work Phone: Epithelial Cells UA 2 TO 5 [facility] [employer] Work Phone: Glucose, Ur Negative NEGATIVE [facility] Work Phone: Ketones Ql (U) Negative NEGATIVE [facility] Work Phone: Leukocyte esterase Test strip Ql (U) Negative NEGATIVE [facility] Work Phone: Mucus, UA NOT REPORTED None [facility] Work Phone: Nitrite, Urine Negative NEGATIVE [facility] Work Phone: Other Observations UA NOT REPORTED NOT REQ. M [facility] [employer] Work Phone: pH, UA 5.5 [facility] [employer] Work Phone: Protein, UA Negative NEGATIVE [facility] Work Phone: RBC, UA None [facility] Work Phone: Renal Epithelial, UA NOT REPORTED 0 /HPF [facility] [employer] Work Phone: Specific [place], UA 1.020 [facility] [employer] Work Phone: Trichomonas, UA NOT REPORTED None [facility] Work Phone: Turbidity UA CLEAR CLEAR [facility] Work Phone: Urinalysis Comments NOT REPORTED [facility] [employer] Work Phone: Urine Hgb Negative NEGATIVE [facility] [employer] Work Phone: Urobilinogen, Urine Normal Normal [facility] Work Phone: WBC, UA 2 TO 5 [facility] Work Phone: Yeast, UA NOT REPORTED None [facility] Work Phone: Vitamin B12on 06-27-2020 Cobalamin (Vitamin B12) [Mass/Vol] 492 pg/mL 232 - 1245 pg/mL [place] CBCon 06-26-2020 Erythrocyte distribution width (RBC) [Ratio] 13.4 % 11.8 - 14.4 % [place] Hematocrit (Bld) [Volume fraction] 47.6 % High 36.3 - 47.1 % [place] Hemoglobin (Bld) [Mass/Vol] 15.1 g/dL 11.9 - 15.1 g/dL [place] Interpretation and review of laboratory results Abnormal [place] MCH (RBC) [Entitic mass] 27.8 pg 25.2 - 33.5 pg [place] MCHC (RBC) [Mass/Vol] 31.7 g/dL 28.4 - 34.8 g/dL [place] MCV (RBC) [Entitic vol] 87.7 fL 82.6 - 102.9 fL [place] Platelet mean volume (Bld) [Entitic vol] 10.8 fL 8.1 - 13.5 fL [place] Platelets (Bld) [#/Vol] 259 10*3/uL [place] RBC (Bld) [#/Vol] 5.43 10*6/uL High 3.95 - 5.1 1 m/uL [place] WBC (Bld) [#/Vol] 7.3 10*3/uL [place] WBC (Bld) [#/Vol] 0.0 10*3/uL 0.0 per 10 0 WBC [place] Comprehensive Metabolic Pane reina 06-26-2020 Albumin [Mass/Vol] 4.8 g/dL 3.5 - 5.2 g/dL [place] Albumin/Globulin [Mass ratio] 1.6 {ratio} [place] ALP [Catalytic activity/Vol] 87 U/L 35 - 104 U/L [place] ALT [Catalytic activity/Vol] 27 U/L 5 - 33 U/L [place] Anion gap [Moles/Vol] 9 mmol/L 9 - 17 mmol/L [place] AST [Catalytic activity/Vol] 20 U/L <32 [place] Bilirubin Ql (U) 0.45 mg/dL 0.3 - 1.2 mg/dL [place] Bun/Cre Ratio 27 High [place] Calcium [Mass/Vol] 9.8 mg/dL 8.6 - 10. 4 mg/dL [place] Chloride [Moles/Vol] 99 mmol/L 98 - 10 7 mmol/L [place] CO2 [Moles/Vol] 29 mmol/L 20 - 31 mmol/L [place] Creatinine [Mass/Vol] 0.7 mg/dL 0.5 - 0.9 mg/dL [place] GFR >60 >60 mL/min [place] GFR Non- >60 >60 mL/min [place] Glucose [Mass/Vol] 124 mg/dL High 70 - 99 mg/dL [place] Interpretation and review of laboratory results Abnormal [place] Potassium [Moles/Vol] 4.4 mmol/L 3.7 - 5.3 mmol/L [place] Protein [Mass/Vol] 7.8 g/dL 6.4 - 8.3 g/dL [place] Sodium [Moles/Vol] 137 mmol/L 135 - 144 mmol/L [place] Urea nitrogen [Mass/Vol] 19 mg/dL 6 - 20 mg/dL [place] Magnesiumon 06-26-2020 Magnesium [Mass/Vol] 2.1 mg/dL 1.6 - 2 .6 mg/dL [place] Metabolic Panelon 06-26-2020 GFR/1.73 sq M predicted among non-blacks MDRD (S/P/Bld) [Vol rate/Area] [place] Comment on above: Stage 1: Some kidney damage normal GFR Stage 2: Mild kidney damage GFR 60-89 Stage 3: Moderate kidney damage GFR 30-59 Stage 4: Severe kidney damage GFR 15-29 Stage 5: Severe kidney damage GFR <15 ESRD - chronic treatment by dialysis or transplant Average GFR for 50-5 9 years old: 93 mL/min/1.73sq m Chronic Kidney Disease: <60 mL/min/1.73sq m Kidney failure: <15 mL/min/1.73sq m eGFR calculated using average adult body mass. Additional eGFR calculator available at: http://www.[employer]/multiple_crcl_2011.htm TSH with Reflexon 06-26-2020 TSH Qn 2.48 m[IU]/L [place] Urinalysis with Microscopico n 06-26-2020 Amorphous, UA NOT REPORTED None [place] Bacteria, UA TRACE Abnormal None [place] Bilirubin Urine Negative NEGATIVE [place] Casts UA NOT REPORTED /LPF [place] Color, UA YELLOW YELLOW [place] Crystals, UA NOT REPORTED None /HPF [place] Epithelial Cells UA 5 TO 10 [place] Glucose, Ur Negative NEGATIVE [place] Interpretation and review of laboratory results Abnormal [place] Ketones Ql (U) Negative NEGATIVE [place] Leukocyte esterase Test strip Ql (U) Negative NEGATIVE [place] Mucus, UA NOT REPORTED None [place] Nitrite, Urine Negative NEGATIVE [place] Other Observations UA NOT REPORTED NOT REQ. M [place] pH, UA 6.0 [place] Protein (U) [Mass/Vol] Negative NEGATIVE [place] RBC (U) [#/Vol] None [facility] [place] [place] Renal Epithelial, UA NOT REPORTED 0 /HPF [place] Specific [place], UA 1.015 [place], [place] Trichomonas, UA NOT REPORTED None [facility] [place] Turbidity UA CLEAR [place]AR [place] Urinalysis Comments NOT REPORTED [place] Urine Hgb Negative NEGATIVE [place] Urobilinogen, Urine Normal Normal [place] WBC, UA 0 TO 2 [place] Yeast, UA NOT REPORTED None [place] Basic Metabolic Panelon Anion gap [Moles/Vol] 6 mmol/L Low 9 - 17 mmol/L [place] Bun/Cre Ratio 24 High [place] Calcium [Mass/Vol] 9.5 mg/dL 8.6 - 10. 4 mg/dL [place] Chloride [Moles/Vol] 104 mmol/L 98 - 10 7 mmol/L [place] CO2 [Moles/Vol] 30 mmol/L 20 - 31 mmol/L [place] Creatinine [Mass/Vol] 0.78 mg/dL 0.5 - 0.9 mg/dL [place] GFR >60 >60 mL/min [place] GFR Non- >60 >60 mL/min [place] Glucose [Mass/Vol] 154 mg/dL High 70 - 99 mg/dL [place] Interpretation and review of laboratory results Abnormal [place] Potassium [Moles/Vol] 4.0 mmol/L 3.7 - 5.3 mmol/L [place] Sodium [Moles/Vol] 140 mmol/L 135 - 144 mmol/L [place] Urea nitrogen [Mass/Vol] 19 mg/dL 6 - 20 mg/dL [place] CBC auto differentialon Basophils (Bld) [#/Vol] 0.03 10*3/uL [place] Basophils/100 WBC (Bld) 0 % 0 - 2 % [place] Differential Type NOT REPORTED [place] Eosinophils (Bld) [#/Vol] 0.07 10*3/uL [place] Eosinophils/100 WBC (Bld) 1 % 1 - 4 % [place] Erythrocyte distribution width (RBC) [Ratio] 12.6 % 11.8 - 14.4 % [place] Hematocrit (Bld) [Volume fraction] 45.3 % 36.3 - 47.1 % [place] Hemoglobin (Bld) [Mass/Vol] 14.9 g/dL 11.9 - 15.1 g/dL [place] Immature granulocytes (Bld) [#/Vol] 0 % 0 [place] Immature granulocytes (Bld) [#/Vol] 10*3/uL [place] Interpretation and review of laboratory results Abnormal [place] Lymphocytes (Bld) [#/Vol] 1.95 10*3/uL [place] Lymphocytes/100 WBC (Bld) 29 % 24 - 43 % [place] MCH (RBC) [Entitic mass] 28.0 pg 25.2 - 33.5 pg [place] MCHC (RBC) [Mass/Vol] 32.9 g/dL 28.4 - 34.8 g/dL [place] MCV (RBC) [Entitic vol] 85.0 fL 82.6 - 102.9 fL [place] Monocytes (Bld) [#/Vol] 0.49 10*3/uL [place] Monocytes/100 WBC (Bld) 7 % 3 - 12 % [place] Platelet mean volume (Bld) [Entitic vol] 10.6 fL 8.1 - 13.5 fL [place] Platelets (Bld) [#/Vol] NOT REPORTED [place] Platelets (Bld) [#/Vol] 246 10*3/uL [place] RBC (Bld) [#/Vol] 5.33 10*6/uL High 3.95 - 5.1 1 m/uL [place] RBC morphology finding Nom (Bld) NOT REPORTED [place] Segmented neutrophils/100 WBC (Bld) 63 % 36 - 65 % [place] Segs Absolute 4.27 [place] WBC (Bld) [#/Vol] 0.0 10*3/uL 0.0 per 10 0 WBC [place] WBC (Bld) [#/Vol] 6.8 10*3/uL [place] WBC Morphology NOT REPORTED [place] D-Dimer, Quantitativeon D-Dimer, Quant 0.36 [place] Comment on above: When combined with a low clinical probability, a D dimer value of <0.50 mg/L FEU is considered negative for DVT and PE (negative predictive value of 98%, sensitivity of 97%). If this test is not being used to help rule out DVT and PE, then the following reference range should be utilized: 0.00 - 0.59 mg/L FEU. The D-Dimer assay is intended for use as an aid in the diagnosis of venous thromboembolism (DVT and PE) and the results should be interpreted in conjunction with the patient's medical history, clinical presentation, and other findings. Elevated levels of D-dimer activity can be seen in any state of coagulation activation and is not recommended in patients with therapeutic dose anticoagulant therapy for >24 hours, fibrinolytic therapy within the previous 7 days, trauma or surgery within the previous 4 weeks, disseminated malignancies, aortic aneurysm, sepsis, severe infections, pneumonia, severe skin infections, liver cirrhosis, advanced age, coronary disease, diabetes, and . A very low percentage of patients with DVT may yield D-dimer results below the cutoff of 0.5 mg/L FEU. This is known to be more prevalent in patients with distal DVT. Metabolic Panelon 06-09-2020 GFR/1.73 sq M predicted among non-blacks MDRD (S/P/Bld) [Vol rate/Area] [place] Comment on above: Average GFR for 50-5 9 years old: 93 mL/min/1.73sq m Chronic Kidney Disease: <60 mL/min/1.73sq m Kidney failure: <15 mL/min/1.73sq m eGFR calculated using average adult body mass. Additional eGFR calculator available at: http://www.[employer]/multiple_crcl_2012.htm Stage 1: Some kidney damage normal GFR Stage 2: Mild kidney damage GFR 60-89 Stage 3: Moderate kidney damage GFR 30-59 Stage 4: Severe kidney damage GFR 15-29 Stage 5: Severe kidney damage GFR <15 ESRD - chronic treatment by dialysis or transplant Troponinon 06-09-2020 Troponin I.cardiac [Mass/Vol] NOT REPORTED [place] Troponin T.cardiac [Mass/Vol] NOT REPORTED <0.03 ng/mL [place] Troponin, High Sensitivity <6 0 - 14 ng/L [place] Comment on above: High Sensitivity Troponin values cannot be compared with other Troponin methodologies. Patients with high levels of Biotin oral intake (i.e >5mg/day) may have falsely decreased Troponin levels. Samples collected within 8 hours of biotin intake may require additional information for diagnosis. XR CHEST PORTABLEon 06-08-19 21 Vishal, M[facility] Incoming Radiant Results From [employer] - 06/08/2020 11:41 PM EST EXAMINATION: ONE XRAY VIEW OF THE CHEST 06/08/2020 11:30 pm COMPARISON: None. HISTORY: ORDERING SYSTEM PROVIDED HISTORY: Chest tightness, COVID positive. [place] at home. TECHNOLOGIST PROVIDED HISTORY: Chest tightness, COVID positive. [place] at home. FINDINGS: The lungs are without acute focal process. There is no effusion or pneumothorax. The cardiomediastinal silhouette is without acute process. The osseous structures are without acute process. IMPRESSION: No acute process. [place] EXAMINATION: ONE XRAY VIEW OF THE CHEST 06/08/2020 11:30 pm COMPARISON: None. HISTORY: ORDERING SYSTEM PROVIDED HISTORY: Chest tightness, COVID positive. [place] at home. TECHNOLOGIST PROVIDED HISTORY: Chest tightness, COVID positive. [place] at home. FINDINGS: The lungs are without acute focal process. There is no effusion or pneumothorax. The cardiomediastinal silhouette is without acute process. The osseous structures are without acute process. [place] No acute process. [place] Comprehensive Metabolic Pane reina 03-20-2020 Albumin [Mass/Vol] 4.5 g/dL 3.5 - 5.2 g/dL [place] Albumin/Globulin [Mass ratio] 1.6 {ratio} [place] ALP [Catalytic activity/Vol] 89 U/L 35 - 104 U/L [place] ALT [Catalytic activity/Vol] 25 U/L 5 - 33 U/L [place] Anion gap [Moles/Vol] 10 mmol/L 9 - 17 mmol/L [place] AST [Catalytic activity/Vol] 19 U/L <32 [place] Bilirubin Ql (U) 0.37 mg/dL 0.3 - 1.2 mg/dL [place] Bun/Cre Ratio 25 High [place] Calcium [Mass/Vol] 9.5 mg/dL 8.6 - 10. 4 mg/dL [place] Chloride [Moles/Vol] 103 mmol/L 98 - 10 7 mmol/L [place] CO2 [Moles/Vol] 28 mmol/L 20 - 31 mmol/L [place] Creatinine [Mass/Vol] 0.72 mg/dL 0.5 - 0.9 mg/dL [place] GFR >60 >60 mL/min [place] GFR Non- >60 >60 mL/min [place] Glucose [Mass/Vol] 123 mg/dL High 70 - 99 mg/dL [place] Interpretation and review of laboratory results Abnormal [place] Potassium [Moles/Vol] 4.7 mmol/L 3.7 - 5.3 mmol/L [place] Protein [Mass/Vol] 7.4 g/dL 6.4 - 8.3 g/dL [place] Sodium [Moles/Vol] 141 mmol/L 135 - 144 mmol/L [place] Urea nitrogen [Mass/Vol] 18 mg/dL 6 - 20 mg/dL [place] Lipid Panelon 03-20-2020 Cholesterol [Mass/Vol] 185 mg/dL <200 [place], [place] Comment on above: Cholesterol Guidelines: <200 Desirable 200-240 Borderline >240 Undesirable Cholesterol in HDL [Mass/Vol] 52 mg/dL >40 [place] Comment on above: HDL Guidelines: <40 Undesirable 40-59 Borderline >59 Desirable Cholesterol in LDL [Mass/Vol] 116 mg/dL 0 - 130 mg/dL [place] Comment on above: LDL Guidelines: <100 Desirable 100-129 Near to/above Desirable 130-159 Borderline >159 Undesirable Direct (measured) LDL and calculated LDL are not interchangeable tests. Cholesterol in VLDL [Mass/Vol] NOT REPORTED 1 - 30 mg/dL [place] Cholesterol.total/Cho lesterol in HDL [Mass ratio] 3.6 {ratio} <5 [place] Triglyceride [Mass/Vol] 86 mg/dL <150 [place] Comment on above: Triglyceride Guidelines: <150 Desirable 150-199 Borderline 200-499 High >499 Very high Based on AHA Guidelines for fasting triglyceride, March 2012. Metabolic Panelon 03-20-2020 GFR/1.73 sq M predicted among non-blacks MDRD (S/P/Bld) [Vol rate/Area] [place] Comment on above: Stage 1: Some kidney damage normal GFR Stage 2: Mild kidney damage GFR 60-89 Stage 3: Moderate kidney damage GFR 30-59 Stage 4: Severe kidney damage GFR 15-29 Stage 5: Severe kidney damage GFR <15 ESRD - chronic treatment by dialysis or transplant Average GFR for 50-5 9 years old: 93 mL/min/1.73sq m Chronic Kidney Disease: <60 mL/min/1.73sq m Kidney failure: <15 mL/min/1.73sq m eGFR calculated using average adult body mass. Additional eGFR calculator available at: http://www.[employer]/multiple_crcl_2011.htm TSH with Reflexon 03-20-2020 TSH Qn 1.99 m[IU]/L [place] Vitamin D 25 Hydroxyon 03-20 Interpretation and review of laboratory results Abnormal [place] Vit D, 25-Hydroxy 19.5 ng/mL Low 30 - 100 ng/mL [place] Comment on above: Reference Range: Vitamin D status Range Deficiency <20 ng/mL Mild Deficiency 20-30 ng/mL Sufficiency 30-100 ng/mL Toxicity >100 ng/mL Vital Signs Date Time Vital Sign Value Performing Clinician Faci lity 07-13-2024 18:30-0500 Diastolic blood pressure 68 mm[Hg] Aixa Deleon MD Work Phone: [facility] 07-13-2024 18:30-0500 SaO2% (BldA) [Mass fraction] 100 % Aixa Deleon MD Work Phone: [facility] 07-13-2024 18:30-0500 Systolic blood pressure 145 mm[Hg] Aixa Deleon MD Work Phone: [facility] 07-13-2024 18:15-0500 Body temperature 98.01 [degF] Aixa Deleon MD Work Phone: [facility] 07-13-2024 18:15-0500 Heart rate 100 /min Aixa Deleon MD Work Phone: [facility] 07-13-2024 18:15-0500 Respiratory rate 16 /min Aixa Deleon MD Work Phone: [facility] 10-15-2023 19:29-0400 Body height 165.1 cm Carlyle Nikhil DO Work Phone: [facility] 10-15-2023 19:29-0400 Diastolic blood pressure 61 mm[Hg] Carlyle Nikhil DO Work Phone: [facility] 10-15-2023 19:29-0400 Heart rate 101 /min Carlyle Nikhil DO Work Phone: [facility] 10-15-2023 19:29-0400 Systolic blood pressure 138 mm[Hg] Carlyle Nikhil DO Work Phone: [facility] 09-25-2023 14:41-0400 Body height 166.1 cm Carlyle Nikhil DO Work Phone: [facility] 09-25-2023 14:41-0400 Body mass index (BMI) [Ratio] 23.11 kg/m2 Carlyle Nikhil DO Work Phone: [facility] 09-25-2023 14:41-0400 Body weight 63.78 kg Carlyle Nikhil DO Work Phone: [facility] 09-25-2023 14:41-0400 Diastolic blood pressure 63 mm[Hg] Carlyle Nikhil DO Work Phone: [facility] 09-25-2023 14:41-0400 Heart rate 102 /min Carlyle Nikhil DO Work Phone: [facility] 09-25-2023 14:41-0400 Systolic blood pressure 143 mm[Hg] Carlyle Nikhil DO Work Phone: [facility] 06-09-2020 01:15-0500 BP Diastolic 60 mm[Hg] [place] 06-09-2020 01:15-0500 BP Systolic 140 mm[Hg] [place] 06-09-2020 01:15-0500 Pulse Oximetry 97 % [place] 06-08-2020 23:02-0500 Body Temperature 97.81 [degF] [place], [place] 06-08-2020 23:02-0500 Pulse (Heart Rate) 104 /min [place] 06-08-2020 23:02-0500 Respiratory Rate 14 /min [place] Encounters Encounter Date Encounter Type Care Provider Facility Start: 07-21-2024 End: 07-23-2024 ambulatory [facility] Start: 07-21-2024 End: 07-23-2024 Subsequent hospital visit by physician Ashley [employer] [facility] Comment on above: Abnormal EKG Start: 07-13-2024 End: 07-13-2024 Emergency department patient visit Aixa Deleon MD Work Phone: [facility] Comment on above: Closed head injury, initial encounter (Primary Dx); Fall, initial encounter; Contusion of right hip, initial encounter Start: 05-11-2024 End: 05-11-2024 ambulatory [facility] Start: 05-09-2024 End: 05-09-2024 ambulatory [facility] Start: 05-09-2024 End: 05-09-2024 Subsequent hospital visit by physician Ana Jacobson CNP [facility] Comment on above: Urinary tract infect ion with hematuria, site unspecified Start: 05-03-2024 End: 05-03-2024 ambulatory Aidan Baxter APRN-CARLOS Facility: [facility] Start: 04-27-2024 End: 04-27-2024 ambulatory AIDAN BAXTER [facility] Start: 04-27-2024 End: 04-27-2024 Subsequent hospital visit by physician Ana Jacobson CNP Work Phone: [facility] Start: 04-06-2024 End: 04-06-2024 ambulatory [facility] Start: 04-06-2024 End: 04-06-2024 Subsequent hospital visit by physician Ana Dawson APRN - CARLOS Work [facility] Comment on above: Elevated red blood c ell count Start: 04-05-2024 End: 04-05-2024 ambulatory [facility] Start: 04-05-2024 End: 04-05-2024 Subsequent hospital visit by physician Ana Dawson APRN - CARLOS Work Phone: [facility] Comment on above: Need for hepatitis C screening test; Screening for HIV without presence of risk factors; Generalized anxiety disorder; Low vitamin D level Start: 03-26-2024 End: 03-26-2024 Emergency department patient visit [facility] Start: 11-12-2023 End: 11-12-2023 ambulatory Rosales Barillas DO Facility:[facility] Start: 10-15-2023 ambulatory [facility] Facility: [facility] Start: 10-15-2023 End: 10-15-2023 Subsequent hospital visit by physician Carlyle Tejeda DO Work Phone: [facility] [place] Comment on above: Arrived Start: 10-15-2023 End: 10-15-2023 ambulatory Patricia Schultz MD Facility:[facility] Start: 10-07-2023 ambulatory Aidan Baxter APRN-[employer]EM[employer] Facility: [facility] Start: 10-01-2023 End: 10-01-2023 ambulatory [facility] Start: 09-29-2023 End: 09-29-2023 ambulatory HERACLIO TOLBERT Not Available Start: 09-25-2023 ambulatory PATRICIALEONIDES SCHULTZ Facility:[facility] Start: 09-25-2023 ambulatory CARLYLE TEJEDA Facility: [facility] Start: 09-25-2023 End: 09-25-2023 Office consultation new/estab patient 80 min Carlyle Tejeda DO Work Phone: [facility] [place] Comment on above: Tingling (Primary Dx ); Anxiety disorder, unspecified type; Neck pain; Atypical migraine; Headache, cervicogenic Start: 09-08-2023 End: 09-08-2023 ambulatory Emmanuel Garcia MD Facility:[facility] Start: 08-31-2023 End: 08-31-2023 ambulatory Elida Gama PA-C Facility:[facility] Start: 06-16-2022 End: 06-16-2022 Subsequent hospital visit by physician Patricia Schultz Work Phone: [facility] Start: 11-06-2021 End: 11-06-2021 Subsequent hospital visit by physician Patricia Schultz Work Phone: [facility] Start: 06-18-2021 End: 06-18-2021 Subsequent hospital visit by physician Patricia Schultz Work Phone: [facility] Start: 01-31-2021 End: 01-31-2021 Subsequent hospital visit by physician Patricia Schultz Work Phone: [facility] Start: 09-20-2020 End: 09-20-2020 Subsequent hospital visit by physician Patricia Schultz Work Phone: [facility] Start: 06-26-2020 End: 06-26-2020 Subsequent hospital visit by physician Patricia Schultz [facility] Start: 06-08-2020 End: 06-09-2020 Emergency department patient visit Laureano Russo Work Phone: [facility] Comment on above: COVID-19 (Primary Dx ) Start: 03-22-2020 End: 03-23-[address] DOCTOR JACOME Facility: Start: 03-20-2020 End: 03-20-2020 Subsequent hospital visit by physician Patricia Schultz [facility] Procedures Date Procedure Procedure Detail Performing Clinician Start: 07-13-2024 Radiologic examinati on femur minimum 2 views Aixa Deleon MD Work Phone: Start: 07-13-2024 Radiologic exam ches t single view Aixa Deleon MD Work Phone: Start: 07-13-2024 Ct cervical spine w/ o contrast material Aixa Deleon MD Work Phone: Start: 07-13-2024 Ct head/brain w/o co ntrast material Aixa Deleon MD Work Phone: Start: 07-13-2024 Ecg routine ecg w/le ast 12 lds w/i&r Aixa Deleon MD Work Phone: Start: 07-13-2024 Basic metabolic pane l calcium total Aixa Deleon MD Work Phone: Start: 04-27-2024 Hemoglobin glycosylated a1c Aidan Baxter Work Phone: Start: 04-06-2024 Blood count reticulo cyte automated Ana Dawson STEREOTYPE FINISHER - [employer] Work Phone: Start: 04-05-2024 Antibody hiv-1&hiv-2 single result Ana Dawson STEREOTYPE FINISHER - [employer] Work Phone: Start: 04-05-2024 Comprehensive metabo lic panel Ana Dawson STEREOTYPE FINISHER - [employer] Work Phone: Start: 06-16-2022 Comprehensive metabo lic panel Aidan Baxter Work Phone: Start: 06-18-2021 Blood count complete auto&auto difrntl wbc Aidan Baxter Work Phone: Start: 06-18-2021 Lipid panel Aidan Baxter Work Phone: Start: 01-31-2021 COVID-19, ANTIBODY, TOTAL Patricia Schultz Work Phone: Start: 09-20-2020 Urnls dip stick/tabl et reagent auto microscopy Patricia Schultz Work Phone: Start: 06-26-2020 Assay of magnesium Krit i Schultz Work Phone: Start: 06-26-2020 Assay of thyroid stimulating hormone tsh Patricia Schultz Work Phone: Start: 06-26-2020 Blood count complete automated Patricia Schultz Work Phone: Start: 06-26-2020 Comprehensive metabo lic panel Patricia Schultz Work Phone: Start: 06-26-2020 Cyanocobalamin vitamin b-12 Patricia Schultz Work Phone: Start: 06-26-2020 Urnls dip stick/tabl et reagent auto microscopy Patricia Schultz Work Phone: Start: 06-08-2020 Radiologic exam ches t single view Laureano A Karan Work Phone: Start: 06-08-2020 Assay of troponin quantitative Laureano A Karan Work Phone: Start: 06-08-2020 Basic metabolic pane l calcium total Laureano A [employer] Work Phone: Start: 06-08-2020 Blood count complete auto&auto difrntl wbc Laureano Estrada Karan Work Phone: Start: 06-08-2020 Fibrin dgradj produc ts d-dimer quantitative Laureano Sean [employer] Work Phone: Start: 03-20-2020 25 hydroxy includes fractions if performed Patricia Schultz Work Phone: Start: 03-20-2020 Assay of thyroid stimulating hormone tsh [employer] Work Phone: Start: 03-20-2020 Comprehensive metabo lic panel Patricia Schultz Work Phone: Start: 03-20-2020 Lipid panel [employer] Work Phone: Plan of Treatment Date Care Activity Detail Author Start: 2038 Respiratory Syncytial Virus (RSV) or age 60 yrs+ (1 - 1-dose 75+ series) Respiratory Syncytial Virus (RSV) or age 60 yrs+ (1 - 1-dose 75+ series) [facility] Start: 07-13-2025 GFR test (Diabetes, CKD 3-4, OR last GFR 15-59) GFR test (Diabetes, CKD 3-4, OR last GFR 15-59) [facility] Start: 06-03-2025 Depression Monitoring Depression Monitoring [facility] Start: 04-27-2025 Hemoglobin A1c measurement A1C test (Diabetic or Prediabetic) [facility] Start: 04-19-2025 Depression Monitoring Depression Monitoring [facility] Start: 04-19-2025 Influenza vaccination Flu vaccine (#1) [facility] Comment on above: Postponed from 12/31/2023 (Patient Refus ed) Start: 04-05-2025 COVID-19 Vaccine ( season) COVID-19 Vaccine ( season) [facility] Comment on above: Postponed from 01/31/2024 (Patient Refus ed) Start: 04-05-2025 COVID-19 Vaccine ( season) COVID-19 Vaccine () [facility] Comment on above: Postponed from 01/31/2024 (Patient Refus ed) Start: 04-05-2025 Depression Screen Depression Screen [facility] Start: 04-05-2025 GFR test (Diabetes, CKD 3-4, OR last GFR 15-59) GFR test (Diabetes, CKD 3-4, OR last GFR 15-59) [facility] Start: 03-20-2025 Lipid panel Lipid screen [facility] Start: 09-30-2024 Hemoglobin A1c measurement A1C test (Diabetic or Prediabetic) [facility] Start: 09-30-2024 Lipid panel Lipids [facility] Start: 09-30-2024 Urine screening for protein Diabetic Alb to Cr ratio (uACR) test [facility] Start: 08-16-2024 End: 08-16-2024 Patient encounter procedure 08/16/2024 3:20 PM EDT Office Visit [facility] [address] [place] [id number] Ana Dawson, STEREOTYPE FINISHER - [employer]EM[employer] [address] [place] [id number] [facility] Comment on above: wellness. Start: 07-21-2024 End: 07-21-2024 Patient encounter procedure 07/21/2024 2:40 PM EST Office Visit [facility] [address] [place] [id number] Ana Dawson, STEREOTYPE FINISHER - [employer]EM[employer] [address] [place] [id number] C-NUZHAT MAWV-UTI/anxiety/depress ion. [facility] Comment on above: C-NUZHAT MAWV-UTI/anxiety/depression. Start: 06-06-2024 End: 06-06-2024 Patient encounter procedure 06/06/2024 5:00 PM EST Office Visit [facility] [address] [place] [address] [address] [place] [address] Ana Dawson, STEREOTYPE FINISHER - [employer] FOREMAN [address] [facility] [address] [place] [address] [facility] Comment on above: Anxiety and Depression. Start: 05-03-2024 End: 05-03-2024 Patient encounter procedure 05/03/2024 2:40 PM EST Office Visit [facility] [address] [place] [address] [address] [place] [address] Ana Dawson, STEREOTYPE FINISHER - [employer]EMAN [address] [facility] [address] [place] [address] 1 week f/u [facility] Comment on above: 1 week f/u Start: 04-19-2024 End: 04-19-2024 Patient encounter procedure 04/19/2024 1:20 PM EST Office Visit [facility] [address] [place] [address] [address] [place] [address] Ana Dawson, STEREOTYPE FINISHER - [employer] FOREMAN [address] [facility] [address] [place] [address] 2 WEEK F/U [facility] Comment on above: 2 WEEK F/U Start: 02-18-2024 End: 02-18-2024 Patient encounter procedure 02/18/2024 12:30 PM EDT Appointment [facility] [address] [id number] [facility] Start: 01-31-2024 Influenza vaccination INFLUENZA VACCINE (Season Ended) [facility] Start: 12-31-2023 Influenza vaccination Flu vaccine (#1) Felix Cooper [facility] Start: 10-15-2023 End: 10-15-2023 Patient encounter procedure 10/15/2023 7:00 PM EDT Appointment [facility] [place] [address] [place] [address] Carlyle Tejeda DO [address] [place] [address] [facility] Start: 09-25-2023 End: 09-24-2024 COPPER [facility] Comment on above: Expected: 09/25/2023, Expires: Start: 09-25-2023 End: 09-24-2024 METHYLMALONIC ACID [facility] Comment on above: Expected: 09/25/2023, Expires: Start: 09-25-2023 End: 09-24-2024 MR Cervical spine WO contrast MRI SPINE CERVICAL WITHOUT CONTRAST Imaging Routine Tingling Anxiety disorder, unspecified type Neck pain Expected: 09/25/2023, Expires: 09/24/2024 [facility] Comment on above: Expected: 09/25/2023, Expires: Start: 09-25-2023 End: 09-24-2024 VITAMIN B6 [facility] Comment on above: Expected: 09/25/2023, Expires: Start: 09-25-2023 End: 09-24-2024 ZINC, SERUM [facility] Comment on above: Expected: 09/25/2023, Expires: Start: 04-27-2023 Annual Wellness Visit (Medicare) Annual Wellness Visit (Medicare) [facility] Start: 2023 Respiratory Syncytial Virus (RSV) or age 60 yrs+ (1 - 1-dose 60+ series) Respiratory Syncytial Virus (RSV) or age 60 yrs+ (1 - 1-dose 60+ series) [facility] Start: 01-30-2023 COVID-19 VACCINE ( season) COVID-19 VACCINE ( season) [facility] Start: 11-06-2022 Hemoglobin A1c measurement A1C test (Diabetic or Prediabetic) [facility] Start: 06-18-2022 Hemoglobin A1c measurement A1C test (Diabetic or Prediabetic) [facility] Start: 06-18-2022 Lipid panel Lipids [facility] Start: 06-18-2022 Urine screening for protein Diabetic microalbuminuria test [facility] Start: 01-30-2022 Influenza vaccination Flu vaccine (Season Ended) [facility] Start: 12-30-2021 Influenza vaccination Flu vaccine (#1) [facility] Start: 03-20-2021 HbA1c (Bld) [Mass fraction] A1C test (Diabetic or Prediabetic) [place] Start: 03-20-2021 Hemoglobin A1c measurement A1C test (Diabetic or Prediabetic) [facility] [employer] Work Phone: Start: 03-20-2021 Lipid panel Lipid screen [place], [place] Start: 01-30-2021 Influenza vaccination [facility] Start: 06-20-2020 Hemoglobin A1c measurement A1C test (Diabetic or Prediabetic) [facility] Start: 03-20-2020 Annual Wellness Visit (AWV) Annual Wellness Visit (AWV) [facility] Start: 01-31-2020 Influenza vaccination Flu vaccine (#1) [place] Start: 2013 Screening for malignant neoplasm of breast Breast cancer screen [facility] Start: 2013 Screening for malignant neoplasm of colon Colon cancer screen colonoscopy [place], [place] Start: 2013 Shingles Vaccine (1 of 2) Shingles Vaccine (1 of 2) [facility] Start: 2013 Zoster vaccine hzv live for subcutaneous use ZOSTER (SHINGLES) VACCINE (1 of 2) [facility] Start: 02-22-2008 Screening for malignant neoplasm of colon [facility] Start: 2003 Lipid panel LIPID SCREENING [facility] Start: 2003 Screening for malignant neoplasm of breast [facility] Start: 1993 Screening for malignant neoplasm of cervix [facility] Start: 02-22-1984 Screening for malignant neoplasm of cervix [facility] Start: 1982 DTaP/Tdap/Td vaccine (1 - Tdap) DTaP/Tdap/Td vaccine (1 - Tdap) [facility] Start: 1982 Pneumococcal 50+ years Vaccine (1 of 2 - PCV) Pneumococcal 50+ years Vaccine (1 of 2 - PCV) [facility] Start: 1982 Third diphtheria, tetanus and acellular pertussis (DTaP) vaccination TDAP (ADULT) [facility] Start: 1981 Diabetic microalbuminuria test Diabetic microalbuminuria test [place] Start: 1981 Diabetic retinal exam Diabetic retinal exam [facility] Start: 1981 Glaucoma screening Diabetic retinal exam [facility] Start: 1981 Hepatitis C screening Hepatitis C screen [facility] Start: 1979 COVID-19 Vaccine (1) COVID-19 Vaccine (1) [facility] [employer] Phone: Start: 1978 HIV screening [facility] Start: 1975 COVID-19 Vaccine (1) COVID-19 Vaccine (1) [facility] [employer] Phone: Start: 1975 Depression Screen Depression Screen [facility] Start: 1973 Diabetic foot examination Diabetic foot exam [facility] Start: 1973 Diabetic retinal exam Diabetic retinal exam [place] Start: 1969 Pneumococcal 0-64 years Vaccine (1 of 2 - PCV) Pneumococcal 0-64 years Vaccine (1 of 2 - PCV) [facility] Start: 02-22-1968 COVID-19 Vaccine (1) COVID-19 Vaccine (1) [facility] Start: 1963 COVID-19 Vaccine (#1) COVID-19 Vaccine (#1) [facility] Start: 1963 Annual Wellness Visit (AWV) Annual Wellness Visit (AWV) [facility] Start: 1963 Hepatitis C screening [facility] Start: 1963 Tetanus vaccination TETANUS [facility] End: 06-26-2020 Culture, Urine Culture, Urine Microbiology Routine Once for 1 Occurrences starting 06/26/2020 until 06/26/2020 [place] Comment on above: Once for 1 Occurrences starting 06/26/19 21 until 06/26/2020 Culture, Urine Culture, Urine Microbiology Routine 06/26/2020 3:00 PM EST [employer] End: 05-09-2024 Culture, Urine [facility] [employer] Comment on above: 1 Occurrences starting 05/09/2024 until 05/09/2024 EKG 12 Lead EKG 12 Lead ECG STAT 07/13/2024 6:51 PM EST [facility] [employer] Electromyography EMG AUTONOMIC T ESTING Neurology Routine Tingling Anxiety disorder, unspecified type Neck pain Ordered: 09/25/2023 [facility] Comment on above: Ordered: 09/25/2023 End: 07-21-2024 Extended cardiac holter monitor (3 days-14 day) [facility] [employer] Comment on above: 1 Occurrences starting 07/21/2024 until 07/21/2024 End: 03-20-2020 HbA1c (Bld) [Mass fraction] Hemoglobin A1C Lab Routine Once for 1 Occurrences starting 03/20/2020 until 03/20/2020 [facility] [employer] [place] Comment on above: Once for 1 Occurrences starting 03/20/20 until 03/20/2020 HbA1c (Bld) [Mass fraction] Hemoglobin A1C Lab Routine 03/20/2020 2:30 PM EDT [employer] [place] End: 06-18-2021 Hemoglobin A1c/Hemoglobin.total in Blood [employer] Work Phone: Comment on above: Once for 1 Occurrences starting 06/18/19 until 06/18/2021 End: 11-06-2021 Hemoglobin A1c/Hemoglobin.total in Blood [email or web address] Work Phone: Comment on above: Once for 1 Occurrences starting 11/07/19 until 11/06/2021 End: 06-16-2022 Hemoglobin A1c/Hemoglobin.total in Blood [email or web address] Work Phone: Comment on above: Once for 1 Occurrences starting 06/16/19 until 06/16/2022 End: 06-16-2022 Lipid panel [employer] Work Phone: Comment on above: Once for 1 Occurrences starting 06/16/19 until 06/16/2022 End: 06-18-2021 Microalbumin, Ur [employer] Work Phone: Comment on above: Once for 1 Occurrences starting 06/18/19 until 06/18/2021 End: 06-16-2022 Microalbumin, Ur [employer] Work Phone: Comment on above: Once for 1 Occurrences starting 06/16/19 until 06/16/2022 End: 10-15-2023 MR Cervical spine WO contrast [facility] Comment on above: 1 Occurrences starting 10/15/2023 until 10/15/2023 End: 04-06-2024 Path Review, Smear [facility] [employer] Comment on above: 1 Occurrences starting 04/06/2024 until 04/06/2024 Payers Date Payer Category Payer Medicare [id number] 2021 Medicare HUMANA MEDICARE [employer]NA GOLD PLUS HMO [id number] 2021-Present [phone] [address] [address] [place] [address] [id number]. [id number] 1965 Unknown [id number] 2.16.840.1.082954.3.579.2.593 1963 Unknown [id number] 2.16.840.1.825663.3.579.2.1259 1963 Unknown [id number] 2.16.840.1.963846.3.579.2.594 1963 Unknown [id number] 2.16.840.1.959692.3.579.2.594 1963 Unknown [id number] 2.16.840.1.597660.3.579.2.594 1963 Unknown [id number] 2.16.840.1.547623.3.579.2.196 1963 Unknown [id number] 2.16.840.1.533993.3.579.2.196 1963 Unknown [id number] 2.16.840.1.637338.3.579.2.196 1963 Unknown [id number] 2.16.840.1.501713.3.579.2.196 1963 Unknown [id number] 2.16.840.1.323734.3.579.2.196 1963 Unknown [id number] 2.16.840.1.203682.3.579.2.196 1963 Unknown [id number] 2.16.840.1.162869.3.579.2.196 1963 Unknown [id number] 2.16.840.1.579430.3.579.2.196 1963 Unknown [id number] 2.16.840.1.994507.3.579.2.196 1963 Unknown [id number] 2.16.840.1.324319.3.579.2. 1963 Unknown [id number] 2.16.840.1.927455.3.579.2. 1963 Unknown [id number] 2.16.840.1.621511.3.579.2. 1963 Unknown [id number] 2.16.840.1.138137.3.579.2. 1963 Unknown [id number] 2.16.840.1.989636.3.579.2. 1963 Unknown [id number] 2.16.840.1.512565.3.579.2. 1963 Unknown [id number] 2.16.840.1.910910.3.579.2. 1963 Unknown [id number] 2.16.840.1.456049.3.579.2. 1963 Unknown [id number] 2.16.840.1.216534.3.579.2.173 1961 Medicare [id number] 1.2.840.545387.1.13.239.2.7.3. [id number] Self-pay Social History Date Type Detail Facility Tobacco smoking stat [facility] Unknown if ever smoked [employer] [facility] Start: 1965 Sex [facility]igned [facility] [place] Exposure to SARS-CoV -2 (event) Yes [facility] Tobacco smoking stat [facility] Tobacco [facility] consumption [facility] Work [facility]: Start: 09-25-2023 End: 04-05-2024 Tobacco smoking status NHIS Never smoked tobacco [facility] Start: 09-25-2023 End: 04-05-2024 Tobacco use and exposure Smokeless tobacco non-user [facility] Start: 09-25-2023 End: 07-19-2024 Alcoholic beverage intake Ex-drinker (finding) [facility] Start: 09-25-2023 End: 07-19-2024 History of Social function [facility] Start: 09-25-2023 End: 07-19-2024 Tobacco use panel [facility] How hard is it for y ou to pay for the very basics like food, housing, medical care, and heating Not hard at all [facility] (I/We) worried whehazel er (my/our) food would run out before (I/we) got money to buy more. Never true [facility] At any time in the p ast 12 months, were you homeless or living in snf [including now]? No [facility] Start: 04-05-2024 Alcohol Comment it's been year s since she has drank. [employer] Start: 1965 Sex assigned at Female [facility] [employer] [facility] Start: 04-07-2024 Gender identity Identifies as female gender (finding) [facility] Start: 04-07-2024 Sexual orientation Heterosexual (rowan ferro) [facility] History of Present illness Narrative 09-25-2023 Carlyle Tejeda DO - 09/25/2023 2:30 PM EDT Note Date & Type Note Facility 09-25-2023 History of Present illness Narrative Images from the original note were not included. REFERRING PROVIDER: Patricia Schultz MD [address] [place] [address] Chey Henderson is a 58 y.o. female evaluated here in [facility] for consultation/evaluation. CC/Referral: Tingling in the extremities. HPI: - Tingling in the extremities. Onset 07/02/2017 awoke with anxiety and her entire body was shaky/vibrating everywhere. Lightening from the neck to the head R. Laying flat made it worse. Could not lay down to sleep x 1 week. Has sense of tingling, heat, flushed every where from hairs to toes since. Fluctuates with stress. Thought she was having a nervous breakdown with loss of parents and executer of the will. Symptom did not resolve after things settled down. Hx of panic attacks after of son and diagnosis of PTSD. Has stopped following with psych due to sessions worsening symptoms. Stinging/burning in limbs, back, face, hairs with flushed/sweats present much of the day. Fluctuates in severity. Being scared can cause to be much worse. Putting head down and crossing arms gets worse. Neck pain can worsen. Physical activity can worsen. When BP is up the feeling is worse. She can settle into it where the symptoms reduce at night. Still neck pain worsens when laying and needs to focus to settle down. Had seen neurology in the past, had EMG/NCS that did not show anything other than mild R CTS. The test caused worsening x 1 week of symptoms in the entire body. Since onset, has been with higher heart rate, flushing, orthostatic dizziness and nocturnal sweats. - Ongoing R neck pain since onset and associated spread of the neck to back of skull, and can feel it radiate to the right eye. Sensitive to touch back of neck and skull. Sometimes it can cause the cheek/face on the right to tingle. Has had neck pain that shoots up the right side off the neck/skull and even to the face. - Hx of ocular migraines since 30's. Review of relevant records: 03/20/20 06/18/21 11/06/21 06/16/22 Component 6.5 High 6.9 High 6.5 High 6.6 High Hemoglobin A1C 140 151 140 143 Estimated Avg Glucose 03/20/20 06/26/20 06/18/21 06/16/22 Component 1.99 2.48 2.63 2.50 TSH Ref Range & Units 06/26/2020 Vitamin B-12 232 - 1245 pg/mL 492 06/08/20 06/26/20 06/18/21 06/16/22 Component 6.8 7.3 7.9 6.8 WBC 5.33 High 5.43 High 5.25 High 5.41 High RBC 14.9 15.1 14.8 15.9 High Hemoglobin 45.3 47.6 High 46.5 45.9 Hematocrit 85.0 87.7 88.6 84.8 MCV 28.0 27.8 28.2 29.4 MCH 32.9 31.7 31.8 34.6 MCHC 12.6 13.4 13.1 13.4 RDW 246 259 239 253 Platelets 10.6 10.8 11.1 10.8 MPV 03/20/20 06/08/20 06/26/20 06/18/21 06/16/22 Component 123 High 154 High 124 High 140 High 122 High Glucose 18 19 19 25 High 21 High BUN 0.72 0.78 0.70 0.74 0.70 Creatinine -- -- -- -- >60 Est, Glom Filt Rate 25 High 24 High 27 High -- 30 High Bun/Cre Ratio 9.5 9.5 9.8 9.2 9.9 Calcium 141 140 137 141 139 Sodium 4.7 4.0 4.4 4.1 4.4 Potassium 103 104 99 102 102 Chloride 28 30 29 25 27 CO2 10 6 Low 9 14 10 Anion Gap 89 -- 87 92 87 Alkaline Phosphatase 25 -- 27 21 26 ALT 19 -- 20 15 16 AST 0.37 -- 0.45 0.29 Low 0.3 Total Bilirubin 7.4 -- 7.8 7.1 7.4 Total Protein 4.5 -- 4.8 4.2 4.5 Albumin 1.6 -- 1.6 1.4 1.6 Albumin/Globulin Ratio Past Medical History: Diagnosis Date Diabetes mellitus Polycythemia Vitamin D deficiency Past Surgical History: Procedure Laterality Date SECTION Current Outpatient Medications Medication Sig vitamin D3 1.25 MG (53567 UT) capsule Take 1 capsule by mouth once a week. Allergies: Allergies Allergen Reactions Azithromycin Hives Metformin And Related Rash Penicillins Rash Family History Problem Relation Age of Onset Heart Disease - Other Mother Heart Disease - Other Father Social History Tobacco Use Smokeless tobacco: Never Substance Use Topics Alcohol use: Not Currently Drug use: Not Currently Physical Exam: BP 143/63 (BP Location: Right arm, BP Position: Sitting) Pulse 102 Ht 1.661 m (5' 5.4 ) Wt 63.8 kg (140 lb 9.6 oz) BMI 23.11 kg/m Smoking Status Never Assessed Well developed, well nourished in no acute distress. Anxious appearing initially but settles down. Head with pain to light palpation and mild rotation/flexion at the base of skull R. Strain with guarding. Mild head movement causes pain, increased sweats and she becomes more anxious. Palpating base of skull R reproduces her head pain. Sclera nonicteric. AAOx4. Speech fluent. CN 2-12 intact. Normal muscle bulk and tone. Strength 5/5 x 4. Sensory intact x 4 limbs to vibration, pin, temp, touch. Right Left Biceps 0[] 1[] 2[x] 3[] 4[] 0[] 1[] 2[x] 3[] 4[] Triceps 0[] 1[] 2[x] 3[] 4[] 0[] 1[] 2[x] 3[] 4[] Brachioradialis 0[] 1[] 2[x] 3[] 4[] 0[] 1[] 2[x] 3[] 4[] Patella 0[] 1[] 2[x] 3[] 4[] 0[] 1[] 2[x] 3[] 4[] Achilles 0[] 1[] 2[x] 3[] 4[] 0[] 1[] 2[x] 3[] 4[] Right Left Toes []Up [x]Down []Equivocal []Up [x]Down []Equivocal Gait with no shuffling or ataxic features. No ataxia, bradykinesia, tremor or other abnormal movements. Impression/Recommendations: Chey Henderson is seen for consultation here in Neurology Outreach for evaluation of tingling. Features or odd with head to toe tingling that came on acutely in 07/2022 in the setting of acute neck pain. Tingling with features of flushing/heat. Fluctuates with stressors physical and emotional. Has history of anxiety disorder and PTSD which is likely playing a role. Neurological exam is unremarkable, but perhaps she has a small fiber neuropathy causing dysautonomia (history of diabetes dating back to prior to 2019 reported by ) and exacerbated by stress. Cannot exclude acute pain from the neck triggering the symptoms, but what appears to be present is psychiatric disorder is exacerbating the issue. Further, the neck pain is causing neuropathic pain in the neck and radiates up the occipital nerve distribution on the right. This is likely inducing atypical migraine with unilateral R face numbness (has history of ocular migraines). Cervicogenic pain as migraine trigger suspected. 1) MRI C spine to assess for any structural pathology 2) Consider massage or acupuncture 3) Urge her to re-establish with psychiatry/psychlogy 4) She is opposed to medications, but agreeable to trial of a lower dose. - Start Inderal IR 20 mg daily in the evening - In 2 weeks start start Cymbalta 20 mg daily 5) QSART testing to assess for autonomic dysfunction/small fiber neuropathy 6) Labs ZINC, SERUM COPPER VITAMIN B12 METHYLMALONIC ACID VITAMIN B6 Thank you for asking us to consult with your patient. Sincerely, Carlyle Tejeda DO Neurology 9 minutes for review of records and/or prep on day of visit 24 minutes for evaluation and examination 10 minutes for discussion, counseling and/or education 2 minutes for ordering labs, tests, medications referrals and/or other procedures 18 minutes for documentation on the day of the encounter 63 Total documented in this encounter [facility] Instructions 09-25-2023 Patient Instructions Note Date & Type Note Facility 09-25-2023 Instructions Carlyle Tejeda DO - 09/25/2023 2:30 PM EDT Start Inderal IR 20 mg daily in the evening In 2 weeks start start Cymbalta 20 mg daily MRI C spine QSART testing Labs Reconsider establishing with psychiatry/psychology Consider massage/acupuncture documented in this encounter [facility] Evaluation note Note Date & Type Note Facility Evaluation note Diagnosis Tingling- Primary Disturbance of skin sensation Anxiety disorder, unspecified type Neck pain Cervicalgia Atypical migraine Other forms of migraine, without mention of intractable migraine without mention of status migrainosus Headache, cervicogenic Headache documented in this encounter [facility] Evaluation note Note Date & Type Note Facility Evaluation note Diagnosis Tingling Disturbance of skin sensation Anxiety disorder, unspecified type Neck pain Cervicalgia documented in this encounter [facility] Evaluation note Note Date & Type Note Facility Evaluation note Diagnosis Need for hepatitis C screening test Special screening examination for other specified viral diseases Screening for HIV without presence of risk factors Special screening examination for other specified viral diseases Generalized anxiety disorder Low vitamin D level documented in this encounter [facility] Evaluation note Note Date & Type Note Facility Evaluation note Diagnosis Elevated red blood cell count Reserved for inherently not codable concepts WITHOUT codable children documented in this encounter [facility] Evaluation note Note Date & Type Note Facility Evaluation note Diagnosis Urinary tract infection with hematuria, site unspecified documented in this encounter [facility] note Note Date & Type Note Facility Evaluation note Diagnosis Closed head injury, initial encounter- Primary Fall, initial encounter Contusion of right hip, initial encounter documented in this encounter [facility] Evaluation note Note Date & Type Note Facility Evaluation note Diagnosis Abnormal EKG Nonspecific abnormal electrocardiogram (ECG) (EKG) documented in this encounter [facility] Hospital Discharge instructions Attachments Note Date & Type Note Facility Hospital Discharge instructions The following attachments cannot be sent through Care Everywhere.Head Injury: Closed: General Info (Congolese)Fall Prevention (Congolese)documented in this encounter [facility] Discharge Instructions * Instructions* Laureano Russo MD - 06/09/2020 Please take all medications as prescribed. Please follow up with your primary care physician by calling today, or as soon as possible, for thefirst available appointment. If you do not have a primary care physician, please contact a physician or clinic listed below today to establish care. Please return to the emergency department IMMEDIATELY if you develop uncontrolled fevers, uncontrolled vomiting, change in symptoms, worsening of symptoms, or ANY other concerns. * Attachments The following attachments cannot be sent through Care Everywhere. * Coronavirus Disease (COVID-19): General Info (Congolese) * Coronavirus Disease (COVID-19): Isolation (Congolese) documented in this encounter Assessments Diagnosis COVID-19- Primary Summary Purpose Family History No Family History Records FoundNo Family History Records FoundNo Family History Records FoundNo Family History Records FoundNo Family History Records Found Advance Directives No Advanced Directives Records FoundNo Advanced Directives Records FoundNo Advanced Directives Records FoundNo Advanced Directives Records FoundNo Advanced Directives Records Found Reason for Referral Specialty Diagnoses / Procedures Referred By Contac t Referred To Contact Diagnoses Tingling Anxiety disorder, unspecified type Neck pain Procedures MRI SPINE CERVICAL WITHOUT CONTRAST GA MRI, CERV SPINE Carlyle Tejeda, [address] [facility] [address] [place] [address] Referral ID Status Reason Start Date Expiration Date V isits Requested Visits Authorized [id number] New Request 09/25/2023 10/19/2024 1 1 Specialty Diagnoses / Procedures Referred By Contac t Referred To Contact Diagnoses Tingling Anxiety disorder, unspecified type Neck pain Procedures EMG AUTONOMIC TESTING Carlyle Tejeda, [address] [facility] [address] [place] [address] Referral ID Status Reason Start Date Expiration Date V isits Requested Visits Authorized [id number] New Request 09/25/2023 10/19/2024 1 1 Specialty Diagnoses / Procedures Referred By Contac t Referred To Contact Cardiology Diagnoses Abnormal EKG Procedures Extended cardiac holter monitor (3 days-14 day) GA EXTERNAL ECG REC>48HR<7D REVIEW & INTERPRETATION GA EXTERNAL ECG REC>48HR<7D RECORDING GA EXTERNAL ECG REC>7D<15D RECORDING GA EXTERNAL ECG REC>7D<15D REVIEW & INTERPRETATION Ana Dawson, STEREOTYPE FINISHER - COLLECTION SYSTEMS [employer]EMAN [address] [facility] [address] [place] [id number] Referral ID Status Reason Start Date Expiration Date V isits Requested Visits Authorized [id number] Not Required - RTA 07/19/2024 07/19/2025 1 1 Additional Source Comments Reason for Visit (unrecogniz ed section and content) Reason Comments Positive For Covid-19 patient tested pos itive for covid 10 days ago. she states her pulse ox has been low. Reason Comments New Patient Specialty Diagnoses / Procedures Referred By Ananth t Referred To Contact Neurology Diagnoses Tingling in extremities Patricia Schultz MD [address] [place] [address] [facility] [address] [place] [address] Referral ID Status Reason Start Date Expiration Date V isits Requested Visits Authorized [id number] Pending Review 09/22/2023 10/16/2024 1 1 Specialty Diagnoses / Procedures Referred By Contac t Referred To Contact Diagnoses Tingling Anxiety disorder, unspecified type Neck pain Procedures MRI SPINE CERVICAL WITHOUT CONTRAST [place] MRI, CERV SPINE Carlyle Tejeda, [address] [place] [address] Referral ID Status Reason Start Date Expiration Date V isits Requested Visits Authorized [id number] New Request 09/25/2023 10/19/2024 1 1 Reason Comments Fall Patient fell after s lipping on ice, hitting her left hip and left side of head. Denies LOC. No bleeding. No blood thinners. Specialty Diagnoses / Procedures Referred By Ananth t Referred To Contact Cardiology Diagnoses Abnormal EKG Procedures Extended cardiac holter monitor (3 days-14 day) GA EXTERNAL ECG REC>48HR<7D REVIEW & INTERPRETATION GA EXTERNAL ECG REC>48HR<7D RECORDING GA EXTERNAL ECG REC>7D<15D RECORDING GA EXTERNAL ECG REC>7D<15D REVIEW & INTERPRETATION Ana Dawson, STEREOTYPE FINISHER - COLLECTION SYSTEMS FOREMAN [address] [facility] [address] [place] [address] Referral ID Status Reason Start Date Expiration Date V isits Requested Visits Authorized [id number] Not Required - RTA 07/19/2024 07/19/2025 1 1 Care Teams (unrecognized sec tion and content) Director Outcomes Relationship Specialty Start Date End Date Patricia Schultz [address] [place] [address] PCP - General 03/20/20 Director Outcomes Relationship Specialty Start Date End Date Patricia Schultz [address] [place] [address] PCP - General 03/20/20 Director Outcomes Relationship Specialty Start Date End Date Patricia Schultz [address] [place] [address] PCP - General 03/20/20 Director Outcomes Relationship Specialty Start Date End Date Ana Dawson APRN - [employer]EM[employer] [address] [place] [address] [id number] PCP - General Nurse Practitioner 04/05/24 Director Outcomes Relationship Specialty Start Date End Date Ana Dawson APRN - [employer] [address] [place], [place] [id number] PCP - General Nurse Practitioner 04/05/24 Director Outcomes Relationship Specialty Start Date End Date Ana Dawson APRN - CNP [address] [place], [place] [id number] PCP - General Nurse Practitioner 04/05/24 Director Outcomes Relationship Specialty Start Date End Date Ana Dawson APRN - [employer] [address] [place] [address] [address] [place] [address] PCP - General Nurse Practitioner 04/05/24 Director Outcomes Relationship Specialty Start Date End Date Ana Dawson APRN - [employer] [address] [place] [id number] PCP - General Nurse Practitioner 04/05/24 Director Outcomes Relationship Specialty Start Date End Date Ana Dawson APRN - [employer] [address] [place] [id number] PCP - General Nurse Practitioner 04/05/24 INFORMATION SOURCE (unrecogn ized section and content) DATE CREATED AUTHOR 09/25/2022 [facility] DATE CREATED AUTHOR AUTHOR'S ORGANIZ ATION 09/30/2023 [facility] EPIC DATE CREATED AUTHOR AUTHOR'S ORGANIZ ATION 10/18/2023 [facility] DATE CREATED AUTHOR AUTHOR'S ORGANIZ ATION 05/05/2024 [facility] DATE CREATED AUTHOR AUTHOR'S ORGANIZ ATION 07/25/2024 [facility] Teena Quinones [facility] Ordered Prescriptions (unrec ognized section and content) Prescription Sig Dispensed Refills Start Date End Da te traMADol (ULTRAM) 50 MG tabletIndications:Contus ion of right hip, initial encounter Take 1 tablet by mouth every 6 hours as needed for Pain for up to 3 days. Intended supply: 3 days. Take lowest dose possible to manage pain Max Daily Amount: 200 mg 10 tablet 07/13/2024 07/16/2024 Scheduled Active and Recently Administ ered Medications (unrecognized section and content) Medication Order 07/11/2024 07/12/2024 07/13/2024 fentaNYL (SUBLIMAZE) injection 50 mcg 50 mcg, IntraVENous, ONCE, 1 dose, On Thu07/13/24 at 1830, If oral and IV narcotics ordered, use oral first and only use IV if oral is ineffective or cannot take oral. Do Not give oral and IV within 1 hour of each other unless specifically ordered. 185 (Not Given - Pr ovider: Criselda Pulido RN - Reason: Patient/family refused) ondansetron (ZOFRAN) injection 4 mg 4 mg, IntraVENous, ONCE, 1 dose, On Thu07/13/24 at 1830 185 (Not Given - Pr ovider: Criselda Pulido RN - Reason: Patient/family refused) FOR RECORDS PERTAINING TO PATIENTS WHO ARE OR HAVE BEEN ENROLLED IN A CHEMICAL DEPENDENCY/SUBSTANCEABUSE PROGRAM, SOME INFORMATION MAY BE OMITTED. This clinical summary was aggregated from multiple sources. Caution should be exercised in using it in the provision of clinical care. This summary normalizes information from multiple sources, and as a consequence, information in this document may materially change the coding, format and clinical context of patient data. In addition, data may be omitted in some cases. CLINICAL DECISIONS SHOULD BE BASED ON THE PRIMARY CLINICAL RECORDS. [facility]. provides no warranty or guarantee of the accuracy or completeness of information in this document.
== END 2024-08-02 16:58 | disposition home or self-care (01) ==
LOC: MAMMO 16:57
DX: Z12.31 Encounter for screening mammogram for malignant neoplasm of breast (principal); Z80.3 Family history of malignant neoplasm of breast
CPT/HCPCS: 77063; 77067